=== PATIENT | male | born 2000 | race Caucasian/White ===

== ENCOUNTER 2018-04-03 12:21 | Emergency (ER) | payer OTHER ==
[~2018-04-03] VITALS: Ht 170.2 cm; Wt 60.0 kg
[~2018-04-03 12:21] MED LIST: IBUP-238 PO; OXYC-360 PO
[2018-04-03 12:35] VITALS: BP 103/69; PULSE 103; RESP 16; TEMP 99.3; O2SAT 99
[2018-04-03] MEDS ORDERED: SODIUM CHLOR 0.9% 1000 ML INJ 1,000 ML IV SCH (14:08)
[2018-04-03] MEDS ORDERED: SODIUM CHLORIDE 0.9% FLUSH 10 ML FLUSH IV FLUSH PRN (14:15)
[2018-04-03] MEDS ORDERED: SODIUM CHLOR 0.9% 1000 ML INJ 1,000 ML IV ONE (14:15)
[2018-04-03] MEDS ORDERED: KETOROLAC TROMETHAMINE 30 MG/ML (IVP) VIAL IV PUSH ONE (14:30)
--- NOTE | 2018-04-03 14:33 | PD ---
HPI Chief Complaint: GI Complaint Time Seen by Provider: 13:56 Travel History International Travel<30 days: No Contact w/Intl Traveler<30days: No Traveled to known affect area: No History of Present Illness HPI Patient is a 18-year-old male who presents to the emergency room with complaints of abdominal pain with diarrhea which has been ongoing for the past 4 -5 days. Patient reports that for the past 4-5 days, he has been having lower abdominal pain and cramping. Patient reports that he has been having multiple episodes of diarrhea, patient denies any sick contacts, denies any recent antibiotics, denies any recent travels or trips. Patient reports that he always has abdominal issues - has not seen a block layer in the past. Patient denies any dysuria, urinary urgency or frequency or hematuria. Patient with no fever chills, no other complaints. PFSH Past Medical History Asthma: Yes (CHILDHOOD ) Developmental Delay: No Diminished Hearing: No Kidney Stones: Yes Immunizations Current: Yes Past Surgical History Genitourinary Surgery: Yes (KIDNEY STENT RIGHT SIDE) Oral Surgery: Yes Other Surgery: Yes (KIDNEY STENTS PLACED) Social History Alcohol Use: No Tobacco Use: No Substance Use: No Allergies-Medications (Allergen,Severity, Reaction): Coded Allergies: No Known Allergies (Unverified Allergy, Unknown, 04/03/18) Reported Meds & Prescriptions Reported Meds & Active Scripts Active Percocet (Oxycodone/Acetaminophen) 5 Mg/325 Mg Tab 1 Tab PO Q4H PRN FOR PAIN Motrin (Ibuprofen) 800 Mg Tab 800 Mg PO Q6 Review of Systems General / Constitutional: No: Fever Eyes: No: Visual changes HENT: No: Headaches Cardiovascular: No: Chest Pain or Discomfort Respiratory: No: Shortness of Breath Gastrointestinal: Positive: Nausea, Diarrhea, Abdominal Pain, No: Constipation Genitourinary: No: Dysuria Musculoskeletal: No: Pain Skin: No Rash Neurologic: No: Weakness Psychiatric: No: Depression Endocrine: No: Polydipsia Hematologic/Lymphatic: No: Easy Bruising Physical Exam Narrative GENERAL: moderate distress SKIN: Focused skin assessment warm/dry. HEAD: Atraumatic. Normocephalic. EYES: Pupils equal and round. No scleral icterus. No injection or drainage. ENT: No nasal bleeding or discharge. Mucous membranes pink and moist. NECK: Trachea midline. No JVD. CARDIOVASCULAR: Regular rate and rhythm. No murmur appreciated. RESPIRATORY: No accessory muscle use. Clear to auscultation. Breath sounds equal bilaterally. GASTROINTESTINAL: Abdomen soft, tenderness to lower abdomen, nondistended. Hepatic and splenic margins not palpable. MUSCULOSKELETAL: No obvious deformities. No clubbing. No cyanosis. No edema. NEUROLOGICAL: Awake and alert. No obvious cranial nerve deficits. Motor grossly within normal limits. Normal speech. PSYCHIATRIC: Appropriate mood and affect; insight and judgment normal. Data Data Last Documented VS Vital Signs Date Time Temp Pulse Resp B/P (MAP) Pulse Ox O2 Delivery O2 Flow Rate FiO2 04/03/18 15:13 99 04/03/18 12:35 99.3 103 16 103/69 (80) Orders Orders Complete Blood Count With Diff (04/03/18 14:08) Comprehensive Metabolic Panel (04/03/18 14:08) Lipase (04/03/18 14:08) Prothrombin Time / Inr (Pt) (04/03/18 14:08) Act Partial Throm Time (Ptt) (04/03/18 14:08) Urinalysis - C+S If Indicated (04/03/18 14:08) Ct Abd/Pel W Iv Contrast(Rout) (04/03/18 14:08) Iv Access Insert/Monitor (04/03/18 14:08) Ecg Monitoring (04/03/18 14:08) Oximetry (04/03/18 14:08) Sodium Chlor 0.9% 1000 Ml Inj (Ns 1000 M (04/03/18 14:08) Sodium Chloride 0.9% Flush (Ns Flush) (04/03/18 14:15) Sodium Chlor 0.9% 1000 Ml Inj (Ns 1000 M (04/03/18 14:15) Ketorolac Inj (Toradol Inj) (04/03/18 14:30) Iohexol 350 Inj (Omnipaque 350 Inj) (04/03/18 16:16) Labs Laboratory Tests Test 04/03/18 14:30 White Blood Count 8.2 TH/MM3 Red Blood Count 5.73 MIL/MM3 Hemoglobin 18.0 GM/DL Hematocrit 52.3 % Mean Corpuscular Volume 91.2 FL Mean Corpuscular Hemoglobin 31.3 PG Mean Corpuscular Hemoglobin Concent 34.4 % Red Cell Distribution Width 13.5 % Platelet Count 193 TH/MM3 Mean Platelet Volume 8.5 FL Neutrophils (%) (Auto) 74.7 % Lymphocytes (%) (Auto) 13.2 % Monocytes (%) (Auto) 11.0 % Eosinophils (%) (Auto) 0.6 % Basophils (%) (Auto) 0.5 % Neutrophils # (Auto) 6.1 TH/MM3 Lymphocytes # (Auto) 1.1 TH/MM3 Monocytes # (Auto) 0.9 TH/MM3 Eosinophils # (Auto) 0.0 TH/MM3 Basophils # (Auto) 0.0 TH/MM3 CBC Comment DIFF FINAL Differential Comment Prothrombin Time 11.4 SEC Prothromb Time International Ratio 1.1 RATIO Activated Partial Thromboplast Time 25.9 SEC Urine Color YELLOW Urine Turbidity HAZY Urine pH 5.0 Urine Specific Lorenzo 1.028 Urine Protein NEG mg/dL Urine Glucose (UA) NEG mg/dL Urine Ketones NEG mg/dL Urine Occult Blood NEG Urine Nitrite NEG Urine Bilirubin NEG Urine Urobilinogen 2.0 mg/dL Urine Leukocyte Esterase NEG Urine RBC LESS THAN 1 /hpf Urine WBC 1 /hpf Urine Mucus MANY /lpf Microscopic Urinalysis Comment CULT NOT INDICATED Blood Urea Nitrogen 12 MG/DL Creatinine 1.15 MG/DL Random Glucose 82 MG/DL Total Protein 7.6 GM/DL Albumin 4.1 GM/DL Calcium Level 8.7 MG/DL Alkaline Phosphatase 77 U/L Aspartate Amino Transf (AST/SGOT) 18 U/L Alanine Aminotransferase (ALT/SGPT) 21 U/L Total Bilirubin 0.5 MG/DL Sodium Level 137 MEQ/L Potassium Level 3.9 MEQ/L Chloride Level 104 MEQ/L Carbon Dioxide Level 25.7 MEQ/L Anion Gap 7 MEQ/L Estimat Glomerular Filtration Rate 81 ML/MIN Lipase 78 U/L [facility] Medical Decision Making Medical Screen Exam Complete: Yes Emergency Medical Condition: Yes Medical Record Reviewed: Yes Interpretation(s) Vital Signs Date Time Temp Pulse Resp B/P (MAP) Pulse Ox O2 Delivery O2 Flow Rate FiO2 04/03/18 12:35 99.3 103 16 103/69 (80) 99 Differential Diagnosis Colitis, diverticulitis, Crohn's disease, UTI, gastritis, gastroenteritis Narrative Course During the course of the patients emergency department visit, the patients history, examination, and differential diagnosis were reviewed with the patient. The patient was placed on a color television console monitor with oximetry and frequent blood pressure monitoring. The patient had an IV access obtained and blood work sent for analysis. The patient was initially provided IVF as well as IV toradol The patients laboratory studies were reviewed and remarkable for Laboratory Tests Test 04/03/18 14:30 White Blood Count 8.2 TH/MM3 (4.0-11.0) Red Blood Count 5.73 MIL/MM3 (4.50-5.90) Hemoglobin 18.0 GM/DL (13.0-17.0) Hematocrit 52.3 % (39.0-51.0) Mean Corpuscular Volume 91.2 FL (80.0-100.0) Mean Corpuscular Hemoglobin 31.3 PG (27.0-34.0) Mean Corpuscular Hemoglobin Concent 34.4 % (32.0-36.0) Red Cell Distribution Width 13.5 % (11.6-17.2) Platelet Count 193 TH/MM3 (150-450) Mean Platelet Volume 8.5 FL (7.0-11.0) Neutrophils (%) (Auto) 74.7 % (16.0-70.0) Lymphocytes (%) (Auto) 13.2 % (9.0-44.0) Monocytes (%) (Auto) 11.0 % (0.0-8.0) Eosinophils (%) (Auto) 0.6 % (0.0-4.0) Basophils (%) (Auto) 0.5 % (0.0-2.0) Neutrophils # (Auto) 6.1 TH/MM3 (1.8-7.7) Lymphocytes # (Auto) 1.1 TH/MM3 (1.0-4.8) Monocytes # (Auto) 0.9 TH/MM3 (0-0.9) Eosinophils # (Auto) 0.0 TH/MM3 (0-0.4) Basophils # (Auto) 0.0 TH/MM3 (0-0.2) CBC Comment DIFF FINAL Differential Comment Prothrombin Time 11.4 SEC (9.8-11.6) Prothromb Time International Ratio 1.1 RATIO Activated Partial Thromboplast Time 25.9 SEC (24.3-30.1) Urine Color YELLOW (YELLW/STRAW) Urine Turbidity HAZY (CLEAR) Urine pH 5.0 (5.0-8.5) Urine Specific [place] 1.028 (1.002-1.035) Urine Protein NEG mg/dL (NEG-TRACE) Urine Glucose (UA) NEG mg/dL (NEG) Urine Ketones NEG mg/dL (NEG) Urine Occult Blood NEG (NEG) Urine Nitrite NEG (NEG) Urine Bilirubin NEG (NEG) Urine Urobilinogen 2.0 mg/dL (LESS THAN 2) Urine Leukocyte Esterase NEG (NEG) Urine RBC LESS THAN 1 /hpf (0-3) Urine WBC 1 /hpf (0-5) Urine Mucus MANY /lpf (OCC) Microscopic Urinalysis Comment CULT NOT INDICATED Blood Urea Nitrogen 12 MG/DL (7-18) Creatinine 1.15 MG/DL (0.60-1.30) Random Glucose 82 MG/DL (74-106) Total Protein 7.6 GM/DL (6.4-8.2) Albumin 4.1 GM/DL (3.4-5.0) Calcium Level 8.7 MG/DL (8.5-10.1) Alkaline Phosphatase 77 U/L (45-117) Aspartate Amino Transf (AST/SGOT) 18 U/L (15-39) Alanine Aminotransferase (ALT/SGPT) 21 U/L (9-52) Total Bilirubin 0.5 MG/DL (0.2-1.0) Sodium Level 137 MEQ/L (136-145) Potassium Level 3.9 MEQ/L (3.5-5.1) Chloride Level 104 MEQ/L (98-107) Carbon Dioxide Level 25.7 MEQ/L (21.0-32.0) Anion Gap 7 MEQ/L (5-15) Estimat Glomerular Filtration Rate 81 ML/MIN (>89) Lipase 78 U/L (73-393) Radiology studies were reviewed and remarkable for Last Impressions Abdomen/Pelvis CT 04/03/18 1408 Signed Impressions: CONCLUSION: 1. I do not see an etiology for the patient's diffuse abdominal pain. There ar e no inflammatory changes evident. Lab work including CT of the abdomen pelvis were reviewed. Patient with benign workup. Patient is feeling better at this time, patient with most likely gastroenteritis. Signs and symptoms of acute abdomen reviewed with patient and his mother, discussed need for follow-up with a block layer as he may have early symptoms of Crohn's disease versus ulcerative colitis versus IBS. Patient will be given a copy of the studies at discharge, he will return to the emergency room as needed. All incidental findings were reviewed with patient. Diagnosis Primary Impression: Abdominal pain Qualified Codes: R10.9 - Unspecified abdominal pain Additional Impression: Gastroenteritis Patient Instructions: General Instructions Additional Instructions: Please provide patient with a copy of their lab work and studies at discharge* * Please follow up with your primary care doctor in 2-3 days Return to the ER if symptoms worsen or progress Return to the ER as needed Please follow-up with a block layer Disposition: 01 DISCHARGE HOME Condition: Stable Maryana Hendrix DO Apr 03, 2018 14:33
[2018-04-03 14:44] LABS: AUTOMATED NEUTROPHIL # 6.1 TH/MM3 (1.8-7.7); BASOPHIL % 0.5 % (0.0-2.0); EOSINOPHIL % 0.6 % (0.0-4.0); HEMATOCRIT 52.3 % (39.0-51.0); LYMPH % 13.2 % (9.0-44.0); LYMPHOCYTE # 1.1 TH/MM3 (1.0-4.8); MEAN CELL VOLUME 91.2 FL (80.0-100.0); MEAN CORPUSCULAR HEMOGLOBIN 31.3 PG (27.0-34.0); MEAN CORPUSCULAR HGB CONC 34.4 % (32.0-36.0); MEAN PLATELET VOLUME 8.5 FL (7.0-11.0); MONOCYTE # 0.9 TH/MM3 (0-0.9); NEUT % 74.7 % (16.0-70.0); PLATELET COUNT 193 TH/MM3 (150-450); RED BLOOD COUNT 5.73 MIL/MM3 (4.50-5.90); RED CELL DISTRIBUTION WIDTH 13.5 % (11.6-17.2); WHITE BLOOD COUNT 8.2 TH/MM3 (4.0-11.0)
[2018-04-03 14:57] LABS: BILIRUBIN, URINE NEG (NEG); BLOOD, URINE NEG (NEG); GLUCOSE,URINE NEG (NEG); KETONE, URINE NEG (NEG); MUCUS URINE MANY /lpf (OCC); NITRITE,URINE NEG (NEG); URINE COLOR YELLOW (YELLW/STRAW); URINE LEUKOCYTE ESTERASE NEG (NEG)
[2018-04-03 15:05] LABS: ALBUMIN 4.1 GM/DL (3.4-5.0); AST (GOT) 18 U/L (15-39); BICARBONATE 25.7 MEQ/L (21.0-32.0); BLOOD UREA NITROGEN 12 MG/DL (7-18); CALCIUM 8.7 MG/DL (8.5-10.1); CHLORIDE 104 MEQ/L (98-107); CREATININE 1.15 MG/DL (0.60-1.30); GLOMERULAR FILTRATION RATE 81 ML/MIN (>89); GLUCOSE,RANDOM 82 MG/DL (74-106); SODIUM (NA) 137 MEQ/L (136-145)
[2018-04-03 15:06] LABS: ALT (GPT) 21 U/L (9-52)
[2018-04-03 15:09] LABS: ALKALINE PHOSPHATASE 77 U/L (45-117); TOTAL BILIRUBIN ADULT 0.5 MG/DL (0.2-1.0); TOTAL PROTEIN 7.6 GM/DL (6.4-8.2)
[2018-04-03 15:13] VITALS: O2SAT 99
[2018-04-03 15:29] LABS: INTERNATIONAL NORMALIZED RATIO 1.1 RATIO; PROTHROMBIN TIME - PATIENT 11.4 SEC (9.8-11.6)
[2018-04-03] MEDS ORDERED: IOHEXOL 350 MG/ML 10 ML VIAL (for RAD DIAG) IVCONTRAST ONE (16:16)
--- NOTE | 2018-04-03 16:30 | RADRPT ---
EXAM DATE: 04/03/2018 4:15 PM EDT AGE/SEX: 18 years / Male INDICATIONS: Diffuse abdominal pain. Nausea, vomiting and diarrhea. CLINICAL DATA: This is the patient's initial encounter. Patient reports that signs and symptoms have been present for 4 - 6 days and indicates a pain score of 8/10. MEDICAL/SURGICAL HISTORY: Renal calculi. Lithotripsy. ORAL CONTRAST: No oral contrast ingested. RADIATION DOSE: 6.64 CTDI (mGy) COMPARISON: No prior exams available for comparison. TECHNIQUE: Multiple contiguous axial images were obtained through the abdomen and pelvis following b olus infusion of 95 ml Omnipaque 350 (iohexol) nonionic water-soluble contrast as a single exam dos e. No oral contrast ingested. Using automated exposure control and adjustment of the mA and/or kV ac cording to patient size, the radiation dose was kept as low as reasonably achievable to obtain optima l diagnostic quality images. FINDINGS: The lower lungs are clear. The liver and gallbladder unremarkable Spleen and pancreas appear normal The adrenal glands unremarkable Symmetrical renal function with a nonobstructing 4 mm stone on the left There are no inflammatory changes in the abdomen There is no adenopathy or free fluid In the pelvis there are no inflammatory changes evident. There is no adnexal mass. Bone windows are unremarkable. CONCLUSION: 1. I do not see an etiology for the patient's diffuse abdominal pain. There are no inflammatory krishnamurthy ges evident. Electronically signed by: Refugio Pritchett MD 04/03/2018 4:28 PM EDT
== END 2018-04-03 16:53 | disposition home or self-care (01) ==
LOC: NEPD 12:21
DX: K52.9 Noninfective gastroenteritis and colitis, unspecified (principal)
CPT/HCPCS: 74177; 80053; 81001; 83690; 85025; 85610; 85730; 96374; 99284; J1885; J7030; Q9967

== ENCOUNTER 2018-06-24 16:14 | Inpatient (IN) ==
[2018-06-24 17:23] LABS: Baso # (Auto) 0.1 th/mm3 (0.0-0.2); Baso % (Auto) 0.7 % (0.0-2.0); Eos % (Auto) 0.3 % (0.0-4.0); Hematocrit 47.7 % (39.0-51.0); Hemoglobin 16.7 gm/dL (13.0-17.0); Lymph # (Auto) 2.5 th/mm3 (1.0-4.8); Lymph % (Auto) 33.7 % (9.0-44.0); Mean Corpuscular HGB Conc 35.1 % (32.0-36.0); Mean Corpuscular Hemoglobin 31.7 pg (27.0-34.0); Mean Corpuscular Volume 90.2 fL (80.0-100.0); Mean Platelet Volume 9.7 fL (7.0-11.0); Mono # (Auto) 0.5 th/mm3 (0.0-0.9); Mono % (Auto) 6.2 % (0.0-8.0); Neut # (Auto) 4.4 th/mm3 (1.8-7.7); Neut % (Auto) 59.1 % (16.0-70.0); Platelet Count 227 th/mm3 (150-450); Red Blood Count 5.29 mil/mm3 (4.50-5.90); Red Cell Distribution Width 12.9 % (11.6-17.2); White Blood Count 7.5 th/mm3 (4.0-11.0)
[2018-06-24 17:55] LABS: Albumin 4.8 g/dL (3.4-5.0); Anion Gap 9 meq/L (5-15); Aspartate Aminotransferase 15 U/L (15-39); Blood Urea Nitrogen 9 mg/dL (7-18); Calcium 9.4 mg/dL (8.5-10.1); Carbon Dioxide 26.7 meq/L (21.0-32.0); Chloride 105 meq/L (98-107); Glomerular Filtration Rate Greater Than 89 mL/min (>89); Glucose,Random 83 mg/dL (74-106); Potassium 3.7 meq/L (3.5-5.1); Sodium 141 meq/L (136-145)
[2018-06-24 18:05] LABS: Alanine Aminotransferase 17 U/L (9-52); Alkaline Phosphatase 87 U/L (45-117); Total Protein 8.5 g/dL (6.4-8.2)
--- NOTE | 2018-06-24 18:25 | ED ---
HPI General Chief complaint: Psychiatric Symptoms Stated complaint: Psych Eval-HHPD Time Seen by Provider: 06/24/18 17:52 History of Present Illness HPI narrative: 18-year-old male with a history of depression is brought to the emergency department under Patel act for evaluation of suicidal ideations. Per the Patel act report the patient called the suicide hotline and PD went to pick him up. The patient states that he has been feeling more depressed recently and last night started feeling suicidal. States that he tried to get in contact with his family and friends and could not get a hold of anybody and this morning his suicidal ideations worsened so he called the was at hotline. He is currently complaining of feeling very anxious. He still is having suicidal ideations. States that his plan would be to get on the highway and drive off the road into a pole to kill himself. The patient states that he has tried to attempt suicide twice in the past. He currently is taking Zoloft for his depression. Denies any drug or alcohol use. Denies any homicidal ideations. Denies any physical complaints. No other complaints. Related Data Home Medications Medication Instructions Recorded Confirmed sertraline [Zoloft] 100 mg PO DAILY 06/24/18 06/24/18 Allergies Allergy/AdvReac Type Severity Reaction Status Date / Time No Known Allergies Allergy Unverified 06/24/18 16:20 Review of Systems ROS: all other systems reviewed are negative PMFSH Medical History Medical History Kidney stones (Acute) Surgical History Surgical History S/P ureteral stent placement (Acute) Social History Social History Substance History: No History of Abuse Second Hand Smoke Exposure: No Smoking Status: Never smoker How Often Do You Have a Drink Containing Alcohol: Never Recent Travel in [facility] within the Last 8 Weeks: No Recent Out of Country Travel within the Last 8 Weeks: No Immunization History Tetanus Immunization: >5 Years Hx Influenza Vaccine This Season: No Exam Narrative Exam Narrative: GENERAL: Well-nourished and well-developed pleasant male patient in no acute distress however is anxious appearing. SKIN: Warm and dry no obvious rashes or lesions. HEAD: Normocephalic and atraumatic. EYES: No injection, drainage, or hyphema noted. PERRLA. EOMI. ENT: No nasal drainage noted. Oropharynx is clear. NECK: Supple and the trachea is midline. CARDIOVASCULAR: Regular rate and rhythm. RESPIRATORY: Breath sounds are equal bilaterally with no accessory muscle use, wheezing, rhonchi, or crackles. GASTROINTESTINAL: Abdomen is soft, non-tender, and nondistended. MUSCULOSKELETAL: No obvious deformities, swelling, cyanosis, or ecchymosis is present throughout the upper and lower extremities. Patient has full range of motion without any signs of neurovascular compromise. Distal pulses are 2+ throughout. NEUROLOGICAL: Awake, alert, and oriented. Normal speech and gait. Cranial nerves are grossly intact. Course Initial Documented Vital Signs Temperature 98.9 F 06/24/18 16:56 Pulse Rate 64 06/24/18 16:56 Respiratory Rate 18 06/24/18 16:56 Blood Pressure 111/62 06/24/18 16:56 Pulse Oximetry 98 06/24/18 16:56 Last Documented Vital Signs Temperature 98.9 F 06/24/18 16:56 Pulse Rate 64 06/24/18 16:56 Respiratory Rate 18 06/24/18 16:56 Blood Pressure 111/62 06/24/18 16:56 Pulse Oximetry 98 06/24/18 16:56 Medical Decision Making [facility] Narrative Medical decision making narrative: Patient presents under a Patel act. Physical examination and vital signs are essentially unremarkable. Patient has no medical complaints to report. Patient is complaining of anxiety and therefore is administered Vistaril 50 mg orally. Psych screen has been ordered. The laboratory results are unremarkable. The patient is medically cleared for psychiatric evaluation and disposition. Medical Screen Exam Complete: Yes Emergency Medical Condition: Yes Differential Diagnosis Differential Diagnosis: Differential: Depression versus adjustment reaction versus anxiety versus PTSD versus psychosis NOS versus mood disorder NOS versus substance induced mood disorder versus ODD versus adjustment reaction versus schizophrenia versus bipolar disorder versus schizoaffective versus electrolyte abnormality versus dementia versus malingering. Lab Data Result diagrams: 06/24/18 16:26 06/24/18 16:26 Lab Results 06/24/18 06/24/18 Range/Units 16:26 16:26 WBC 7.5 (4.0-11.0) th/mm3 RBC 5.29 (4.50-5.90) mil/mm3 Hgb 16.7 (13.0-17.0) gm/dL Hct 47.7 (39.0-51.0) % MCV 90.2 (80.0-100.0) fL MCH 31.7 (27.0-34.0) pg MCHC 35.1 (32.0-36.0) % RDW 12.9 (11.6-17.2) % Plt Count 227 (150-450) th/mm3 MPV 9.7 (7.0-11.0) fL Neut % (Auto) 59.1 (16.0-70.0) % Lymph % (Auto) 33.7 (9.0-44.0) % [place] % (Auto) 6.2 (0.0-8.0) % Eos % (Auto) 0.3 (0.0-4.0) % Baso % (Auto) 0.7 (0.0-2.0) % Neut # (Auto) 4.4 (1.8-7.7) th/mm3 Lymph # (Auto) 2.5 (1.0-4.8) th/mm3 [place] # (Auto) 0.5 (0.0-0.9) th/mm3 Eos # (Auto) 0.0 (0.0-0.4) th/mm3 Baso # (Auto) 0.1 (0.0-0.2) th/mm3 WBC Differential . Differential Comment Auto diff final Sodium 141 (136-145) meq/L Potassium 3.7 (3.5-5.1) meq/L Chloride 105 (98-107) meq/L Carbon Dioxide 26.7 (21.0-32.0) meq/L Anion Gap 9 (5-15) meq/L BUN 9 (7-18) mg/dL Creatinine 1.03 (0.60-1.30) mg/dL Estimated GFR Greater than 89 (>89) mL/min Random Glucose 83 (74-106) mg/dL Calcium 9.4 (8.5-10.1) mg/dL Total Bilirubin 0.5 (0.2-1.0) mg/dL AST 15 (15-39) U/L ALT 17 (9-52) U/L Alkaline Phosphatase 87 (45-117) U/L Total Protein 8.5 H (6.4-8.2) g/dL Albumin 4.8 (3.4-5.0) g/dL TSH 1.960 (0.358-3.740) uIU/mL Serum Alcohol Less than 3 (0-5) mg/dL Discharge Plan Discharge Disposition Patient Disposition: 30 Still Patient Discharge Details Diagnosis: Depression Physicians Team ED Provider: Jose Roberto Tim ED Midlevel Provider: Yaquelin Grant Primary Care Provider: UNKNOWN, Rxs /Orders / Referrals /Forms Prescriptions: No Action sertraline [Zoloft] 100 mg Tablet 100 mg PO DAILY RF: 0 Discharge Interventions Interventions: Vital Signs Last Done: 06/24/18 16:56 Status ED Status: With Doctor
[2018-06-24 19:49] LABS: Amphetamine Screen,Urine Neg (Neg); Barbiturate Screen,Urine Neg (Neg); Cannabinoid Screen,Urine Neg (Neg); Cocaine Screen,Urine Neg (Neg)
[2018-06-24 20:19] LABS: Opiate Screen,Urine Neg (Neg)
[2018-06-24] MEDS ORDERED: Aluminum/Magnesium/Simethacone Susp 30 ML UDC PO PRN (21:00)
[2018-06-25 09:09] LABS: Chol/HDL Ratio 3.04 Ratio; HDL Cholesterol 42.1 mg/dL (40.0-60.0)
--- NOTE | 2018-06-25 11:02 | P.HPPSY ---
Provisional Diagnosis Admission Date: June 24, 2018 21:01 Competence Certification of Person's Competence To Provide Express and Informed Consent I have personally examined Zachariah Castellanos III, a person being served at [facility] on, June 25, 2018 1056. Express and informed consent means consent voluntarily given in writing, by a competent person, after sufficient explanation and disclosure of the subject matter involved to enable the person to make a knowing and willful decision without any element of force, fraud, deceit, duress, or other form of constraint or coercion. This person is 18 years of age or older, is not now known to be incompetent to consent to treatment with a guardian advocate, and does not have a health care surrogate or proxy currently making medical treatment decisions. I have found this person to be one of the following: [X] Competent to provide express and informed consent, as defined above, for voluntary admission to this facility and is competent to provide express and informed consent for treatment. He/she has the consistent capacity to make well reasoned, willful, and knowing decisions concerning his or her medical or mental health treatment. The person fully and consistently understands the purpose of the admission for examination/placement and is fully capable of personally exercising all rights assured under [place] [] Incompetent to provide express and informed consent to voluntary admission, and this is incompetent to provide express and informed consent to treatment. The person must be transferred to involuntary status and a petition for a guardian advocate filed with the Circuit Court. [] Refusing to provide express and informed consent to voluntary admission but is competent to provide express and informed consent for treatment. The person must be discharged or transferred to involuntary status. Form shall be completed within 24 hours of a person's arrival at the receiving facility and filed in the clinical record of each person: 1. Admitted on a voluntary basis 2. Permitted to provide express and informed consent to his/her own treatment 3. Allowed to transfer from involuntary to voluntary status 4. Prior to permitting a person to consent to his or her own treatment after having been previously found incompetent to consent to treatment. History of Present Illness Capacity: Has capacity Chief Complaint: see below History of Present Illness: Patient is a 18-year-old male admitted for suicidal ideation with a history of multiple depressive episodes. Patient describes depressive symptoms over the last 6 months. He has had sad mood, low energy, poor sleep at 4 hours a night and poor appetite with a resulting weight loss of 20 pounds. He had been compliant with his Zoloft 100 mg daily from his medical doctor but it has had no effects in the last 6 months. Patient developed suicidal ideation last night , felt scared and called the suicide hotline. Today, patient admits to fleeting suicidal thoughts but does not have persistent ideation intent or plan. Patient says that on occasion he hears screaming in her car horns that are not there. There are no voices that are talking to him. There are no delusions that were elicited. Denies a history of tejas. Patient also complains of panic attacks with tachycardia and shortness of breath twice a week Past psychiatric history include no outpatient history and one inpatient admissions 2 years ago. Patient has had multiple suicide attempts where he tried to jump off a third story balcony while he was in the he is also try to overdose on pills. Medical history includes kidney stones and he follows up with a urologist regularly Patient is a healthy relationship with his girlfriend. He is working as a travel pt and lives and is close to his father - Inpatient Certification I certify that the inpatient services were ordered in accordance with Medicare regulations governing the order. This includes certification that hospital inpatient services are reasonable and necessary and in the case of services not specified as inpatient-only under 42 CFR 419.22(n), that they are appropriately provided as inpatient services in accordance to with the 2-midnight benchmark under 43 CFR 412.3(e) I certify that inpatient psychiatric hospital services are medically necessary. Evaluation and treatment and/or diagnostic testing are expected to improve the patient's condition. The patient needs on a daily basis, active treatment furnished directly by or requiring the supervision of inpatient psychiatric facility personnel. Estimated Total Length of Stay (Days): 7 Plans for Post Hospital Care: Not yet determined PMFSH - History History Provided By: Patient - Medical History Medical History: Medical History (Last Updated 06/24/18 @ 16:22 by Rosa Peterson) Kidney stones - Surgical History Surgical History: Surgical History (Last Updated 06/24/18 @ 16:22 by Rosa Peterson) S/P ureteral stent placement - Tobacco History Second Hand Smoke Exposure: No Tobacco Use In Past 30 Days: No Smoking Status: Never smoker - Alcohol History How Often Do You Have a Drink Containing Alcohol: Never - Substance Use History Substance History: No History of Abuse - Travel History Recent Travel in the [place] Within the Last 8 Weeks: No Recent Travel Out of the Country Within the Last 8 Weeks: No - Immunization History Tetanus Immunization: >5 Years Hx Influenza Vaccine This Season: No Medications and Allergies Active Medications: Active Medications Acetaminophen (Tylenol) 650 mg PO Q4H PRN PRN Reason: Pain 1-5 or Temp >101F Al Hydrox/Mg Hydrox/Simethicone (Mag-Al Plus Susp Liq) 30 ml PO Q6H PRN PRN Reason: DYSPEPSIA Al Hydroxide/Mg Hydroxide (Milk Of Magnesia Liq) 30 ml PO Q12H PRN PRN Reason: Mild Constipation Melatonin (Melatonin) 5 mg PO HS PRN PRN Reason: INSOMNIA Nicotine (Habitrol 21 Mg Patch.24 Hr) 1 patch T-DERMAL DAILY PRN PRN Reason: Nicotine craving Patch Removal (Remove Old Patch) 1 each T-DERMAL DAILY JOHN Allergies Allergy/AdvReac Type Severity Reaction Status Date / Time No Known Allergies Allergy Unverified 06/24/18 16:20 Home Medications Medication Instructions Recorded Confirmed Type sertraline [Zoloft] 100 mg PO DAILY 06/24/18 06/24/18 History Results - Labs CBC & Chem 7: 06/24/18 16:26 06/24/18 16:26 Labs: Laboratory Results - last 24 hr 06/24/18 06/24/18 06/24/18 16:26 16:26 19:15 WBC 7.5 RBC 5.29 Hgb 16.7 Hct 47.7 MCV 90.2 MCH 31.7 MCHC 35.1 RDW 12.9 Plt Count 227 MPV 9.7 Neut % (Auto) 59.1 Lymph % (Auto) 33.7 Lamar % (Auto) 6.2 Eos % (Auto) 0.3 Baso % (Auto) 0.7 Neut # (Auto) 4.4 Lymph # (Auto) 2.5 Lamar # (Auto) 0.5 Eos # (Auto) 0.0 Baso # (Auto) 0.1 WBC Differential . Differential Comment Auto diff final Sodium 141 Potassium 3.7 Chloride 105 Carbon Dioxide 26.7 Anion Gap 9 BUN 9 Creatinine 1.03 Estimated GFR Greater than 89 Random Glucose 83 Calcium 9.4 Total Bilirubin 0.5 AST 15 ALT 17 Alkaline Phosphatase 87 Total Protein 8.5 H Albumin 4.8 Triglycerides Cholesterol LDL Cholesterol, Calc HDL Cholesterol Cholesterol/HDL Ratio TSH 1.960 Urine Opiates Screen Neg Ur Barbiturates Screen Neg Ur Amphetamines Screen Neg U Benzodiazepines Scrn Neg Urine Cocaine Screen Neg U Cannabinoids Screen Neg Serum Alcohol Less than 3 06/25/18 08:04 WBC RBC Hgb Hct MCV MCH MCHC RDW Plt Count MPV Neut % (Auto) Lymph % (Auto) Lamar % (Auto) Eos % (Auto) Baso % (Auto) Neut # (Auto) Lymph # (Auto) Lamar # (Auto) Eos # (Auto) Baso # (Auto) WBC Differential Differential Comment Sodium Potassium Chloride Carbon Dioxide Anion Gap BUN Creatinine Estimated GFR Random Glucose Calcium Total Bilirubin AST ALT Alkaline Phosphatase Total Protein Albumin Triglycerides 118 Cholesterol 128 LDL Cholesterol, Calc 62 HDL Cholesterol 42.1 Cholesterol/HDL Ratio 3.04 TSH Urine Opiates Screen Ur Barbiturates Screen Ur Amphetamines Screen U Benzodiazepines Scrn Urine Cocaine Screen U Cannabinoids Screen Serum Alcohol Exam Vital signs: Vital Signs 06/24/18 16:56 06/24/18 21:00 06/25/18 05:01 Temperature 98.9 F 97.9 F 97.8 F Pulse Rate 64 96 H 60 Respiratory Rate 18 17 16 Blood Pressure 111/62 134/82 114/65 Pulse Oximetry 98 97 97 Intake & Output 06/24/18 06/25/18 06/25/18 18:59 06:59 18:59 Intake Total 360 / 360 Balance 360 / 360 Weight 124 kg 52.2 kg Intake: Oral 360 / 360 Other: Weight On Admission 52.2 kg Mental Status Examination Appearance: Appropriate Consciousness: Alert Orientation: x4 Motor Activity: Normal gait Speech: Unremarkable Language: Adequate Fund of Knowledge: Adequate Attention and Concentration: Adequate Memory: Unremarkable Mood: Sad Affect: Blunt Thought Process & Associations: Intact Thought Content: Appropriate Hallucination Type: Auditory (Screaming) Suicidal Ideation: Yes (Fleeting) Suicidal Plan: No Suicidal Intention: No Homicidal Ideation: No Homicidal Plan: No Homicidal Intention: No Insight: Fair Judgment: Adequate Assessment and Plan - Plan Plan: Estimated LOS: [] days Patient may sign voluntary. We discussed changing his medication to Effexor and Remeron at night to help with sleep and appetite. Safety plan reviewed and patient contracts for safety. Justification for Continued Inpatient Stay: Patient would decompensate in a less restrictive setting
[2018-06-25 13:32] LABS: Hemoglobin A1c 5.1 % (4.3-6.0)
[2018-06-25] MEDS: Venlafaxine XR 75 MG Capsule PO SCH (14:59)
[2018-06-25] MEDS: Mirtazapine 15 MG Tablet PO SCH (20:51)
[2018-06-26] MEDS: Venlafaxine XR 75 MG Capsule PO SCH (08:49)
[2018-06-26] MEDS: LORazepam 1 MG Tablet PO PRN ×2 (15:32→20:58)
--- NOTE | 2018-06-26 18:45 | P.PNPSY ---
Subjective Chief Complaint: see below Remarks: Patient seen for follow up; chart reviewed. Discussion with nursing staff reported that patient isolative. Patient found lying on hospital bed, noted be calm and cooperative. Patient stated he is feeling "really anxious" had some difficulty sleeping less evening states that medications appear to be helpful, reports mood being "better" feeling less depressed but continues with suicidal ideations. Patient denies any perceptional services at this time. Patient reports 3 main stressors have included relationship discord with his girlfriend , recent discharge from the due to his mental health, and feeling that he is "sick all the time" referring to his recurrent kidney stones. Review of Systems All other systems reviewed negative except as stated in HPI Mental Status Examination Appearance: Appropriate Consciousness: Alert Orientation: x4 Motor Activity: Normal gait Speech: Unremarkable Language: Adequate Fund of Knowledge: Adequate Attention and Concentration: Adequate Memory: Unremarkable Mood: Sad Affect: Blunt Thought Process & Associations: Intact Thought Content: Appropriate Hallucination Type: Auditory (Screaming) Suicidal Ideation: Yes Suicidal Plan: No Suicidal Intention: No Homicidal Ideation: No Homicidal Plan: No Homicidal Intention: No Insight: Fair Judgment: Adequate Assessment and Plan - Assessment (1) Depression Code(s): F32.9 - Major depressive disorder, single episode, unspecified Status : Acute - Plan Plan: Patient this time continues with ongoing suicidal ideations, reporting continued feelings of anxiety but states that his depression is improving. We will continue current treatment. We will continue monitor mood and behavior. We will add Lorazepam 1 mg every 6 hours as needed for anxiety. Discharge planning a progress. Justification for Continued Inpatient Stay: At risk of further decompensation a lower level of care. (1) Depression Qualifiers: Depression Type: unspecified Qualified Code(s): F32.9 - Major depressive disorder, single episode, unspecified
[2018-06-26] MEDS: Mirtazapine 15 MG Tablet PO SCH (20:58)
[2018-06-26] MEDS: Melatonin 5 MG Tablet PO PRN (21:00)
[2018-06-27] MEDS: LORazepam 1 MG Tablet PO PRN ×3 (09:03→20:13)
[2018-06-27] MEDS: Venlafaxine XR 75 MG Capsule PO SCH (09:03)
[2018-06-27] MEDS: Mirtazapine 15 MG Tablet PO SCH (20:13)
[2018-06-27] MEDS: Melatonin 5 MG Tablet PO PRN (20:14)
--- NOTE | 2018-06-27 23:47 | P.PNPSY ---
Subjective Chief Complaint: see below Remarks: Patient seen for follow up; chart reviewed. Discussion with nursing staff reported patient had been endorsing this morning feeling very anxious and stated that he was considering using bed sheets around the bathroom doorknob to hang himself. Patient was found sitting in the hallway noted to be anxious, with poor eye contact. Patient states that he is upset that he could not connect to his girlfriend or mother over the phone and wondering how his girlfriend is doing. Patient reports sleeping well last evening but states that it took a while. Patient reports his mood is "anxious" stating that he is worried about everything including his job, his girlfriend's family. Patient reports having had suicide ideation this morning with plan to hang himself with sheets. Review of Systems All other systems reviewed negative except as stated in HPI Mental Status Examination Appearance: Appropriate Consciousness: Alert Orientation: x4 Motor Activity: Normal gait Speech: Unremarkable Language: Adequate Fund of Knowledge: Adequate Attention and Concentration: Adequate Memory: Unremarkable Mood: Sad, Anxious Affect: Anxious Thought Process & Associations: Intact Thought Content: Appropriate Hallucination Type: Auditory (Screaming) Suicidal Ideation: Yes Suicidal Plan: Yes Suicidal Intention: No Homicidal Ideation: No Homicidal Plan: No Homicidal Intention: No Insight: Fair Judgment: Adequate Assessment and Plan - Assessment (1) Depression Code(s): F32.9 - Major depressive disorder, single episode, unspecified Status : Acute - Plan Plan: Patient endorsing overwhelming anxiety which appears to exasperate his depressed mood which patient continues with suicidal ideations which patient had endorse plan of hanging himself. We will place patient on one-to-one observation for safety. We will increase Effexor to 150 mg p.o. daily, continue rest of medications. We will continue to monitor mood and behavior. Discharge planning in progress. Justification for Continued Inpatient Stay: At risk of further decompensation a lower level of care. (1) Depression Qualifiers: Depression Type: unspecified Qualified Code(s): F32.9 - Major depressive disorder, single episode, unspecified
[2018-06-28] MEDS: LORazepam 1 MG Tablet PO PRN ×2 (08:29→17:27)
[2018-06-28] MEDS: Venlafaxine XR 75 MG Capsule PO SCH (08:29)
--- NOTE | 2018-06-28 18:22 | P.PNPSY ---
Subjective Chief Complaint: see below Remarks: Patient seen for follow up; chart reviewed. Discussion with nursing staff reported that patient patient continues to have episodes of anxiety requiring as needed Lorazepam. Patient was found lying hospital bed in position elevated respiratory rate. He is feeling extremely anxious and having a panic attack. The patient was provided with 5 mg olanzapine to assist with his current symptomatology. He states having had poor sleep less evening, that his mood is "okay" but continues to feel depressed but lessening. Patient continued with suicidal ideations last time being earlier today which lasts a few hours. Patient stated reasonably well for his girlfriend, nephew and parents. He also mentions having visited by his mother less evening which went well. Patient continues to endorse extreme anxiety and was encouraged to utilize coping skills to manage his anxiety as well as starting of buspirone. Review of Systems All other systems reviewed negative except as stated in HPI Mental Status Examination Appearance: Appropriate Consciousness: Alert Orientation: x4 Motor Activity: Normal gait Speech: Unremarkable Language: Adequate Fund of Knowledge: Adequate Attention and Concentration: Adequate Memory: Unremarkable Mood: Anxious Affect: Anxious Thought Process & Associations: Intact Thought Content: Appropriate Hallucination Type: Auditory (Screaming) Suicidal Ideation: Yes Suicidal Plan: No Suicidal Intention: No Homicidal Ideation: No Homicidal Plan: No Homicidal Intention: No Insight: Fair Judgment: Adequate Assessment and Plan - Assessment (1) Depression Code(s): F32.9 - Major depressive disorder, single episode, unspecified Status : Acute - Plan Plan: Patient this time and cursing anxiety and panic attacks on the unit but redirectable. We will start buspirone 5 mg p.o. 3 times daily for anxiety as well as trazodone 50 mg p.o. at bedtime for insomnia. Continue his medications but continue to monitor mood and behavior. Patient to continue one-to-one observation for safety. This was planning a progress. Justification for Continued Inpatient Stay: At risk of further decompensation a lower level care (1) Depression Qualifiers: Depression Type: unspecified Qualified Code(s): F32.9 - Major depressive disorder, single episode, unspecified
--- NOTE | 2018-06-28 20:08 | ECG ---
Date Performed: 06/28/2018 Time Performed: 09:26:10 PTAGE: 18 years EKG: SINUS TACHYCARDIA WITH SHORT NC INTERVAL POSSIBLE RIGHT VENTRICULAR CONDUCTION DELAY ABNORM AL RHYTHM ECG NO PREVIOUS TRACING DOCTOR: Jass Valdes Interpretating Date/Time 06/28/2018 20:07:45
[2018-06-28] MEDS: Melatonin 5 MG Tablet PO PRN (20:46)
[2018-06-28] MEDS: Mirtazapine 15 MG Tablet PO SCH (20:46)
[2018-06-28] MEDS ORDERED: traZODone 50 MG Tablet PO SCH (21:00)
[2018-06-29] MEDS: Venlafaxine XR 75 MG Capsule PO SCH (08:07)
[2018-06-29] MEDS: LORazepam 1 MG Tablet PO PRN (08:07)
--- NOTE | 2018-06-29 20:19 | P.PNPSY ---
Subjective Chief Complaint: see below Remarks: Patient seen for follow, chart reviewed. Discussion nursing staff reported the patient continues with episodic anxiety, disturbed sleep and isolative to his room. Patient was found lying hospital bed asleep noted to be less anxious today during interview. Patient states that he had poor sleep less evening that her mood has been "okay" that he had a panic attack this morning which last about 30 minutes. He denies any perceptional services, denies any suicidal homicidal ideations. Brief supportive psychotherapy provided. Review of Systems All other systems reviewed negative except as stated in HPI Mental Status Examination Appearance: Appropriate Consciousness: Alert Orientation: x4 Motor Activity: Normal gait Speech: Unremarkable Language: Adequate Fund of Knowledge: Adequate Attention and Concentration: Adequate Memory: Unremarkable Mood: Anxious Affect: Anxious Thought Process & Associations: Intact Thought Content: Appropriate Hallucination Type: None Suicidal Ideation: Yes (intermittent) Suicidal Plan: No Suicidal Intention: No Homicidal Ideation: No Homicidal Plan: No Homicidal Intention: No Insight: Fair Judgment: Adequate Assessment and Plan - Assessment (1) Depression Code(s): F32.9 - Major depressive disorder, single episode, unspecified Status : Acute - Plan Plan: Patient this time continues to report anxiety, recently started buspirone. Patient states that Lorazepam has not been effective and agrees to switch to hydroxyzine 50 mg every 6 hours as needed breakthrough anxiety. We will increase trazodone 200 mg p.o. at bedtime for sleep disturbance. Continue rest of medications. Continue to monitor mood and behavior. Discharge planning in progress. Justification for Continued Inpatient Stay: At risk for further decompensation at lower level of care. (1) Depression Qualifiers: Depression Type: unspecified Qualified Code(s): F32.9 - Major depressive disorder, single episode, unspecified
[2018-06-29] MEDS: Mirtazapine 15 MG Tablet PO SCH (21:32)
[2018-06-29] MEDS: traZODone 100 MG Tablet PO SCH (21:32)
[2018-06-30] MEDS: Venlafaxine XR 75 MG Capsule PO SCH (09:23)
[2018-06-30] MEDS: Mirtazapine 15 MG Tablet PO SCH (21:27)
[2018-06-30] MEDS: traZODone 100 MG Tablet PO SCH (21:27)
--- NOTE | 2018-06-30 21:44 | P.PNPSY ---
Subjective Chief Complaint: see below Remarks: Patient seen for follow, chart reviewed. Discussion nursing staff reported the patient attending groups, visible on unit. Patient was found participating in groups and adequately interacted with staff. Patient reports feeling "better" reports having had some sleep difficulty but was somewhat better, patient reports improved appetite, attending groups, and feeling good with continued depression and now having intermittent suicide ideations but states feeling safe here in the hospital. Patient continues report feeling anxious but able to use his coping skills more effectively today. Review of Systems All other systems reviewed negative except as stated in HPI Mental Status Examination Appearance: Appropriate Consciousness: Alert Orientation: x4 Motor Activity: Normal gait Speech: Unremarkable Language: Adequate Fund of Knowledge: Adequate Attention and Concentration: Adequate Memory: Unremarkable Mood: Good Affect: Anxious (less so today) Thought Process & Associations: Intact Thought Content: Appropriate Hallucination Type: None Suicidal Ideation: Yes (intermittent) Suicidal Plan: No Suicidal Intention: No Homicidal Ideation: No Homicidal Plan: No Homicidal Intention: No Insight: Fair Judgment: Adequate Assessment and Plan - Assessment (1) Depression Code(s): F32.9 - Major depressive disorder, single episode, unspecified Status : Acute - Plan Plan: Patient noted with improved mood, we will continue to formulate feeling depressed, continues with intermittent suicide ideations but contracted for safety while on the unit. Patient has not had any behavior for concerning self- harm on the unit. We will discontinue one-to-one observation for now but will be kept on close observation. We will increase mirtazapine to 30 mg p.o. at bedtime, continue rest of medications. Continue to monitor mood and behavior. Discharge planning a progress. Justification for Continued Inpatient Stay: At risk for further decompensation if at lower level of care. (1) Depression Qualifiers: Depression Type: unspecified Qualified Code(s): F32.9 - Major depressive disorder, single episode, unspecified
[2018-07-01] MEDS: Venlafaxine XR 75 MG Capsule PO SCH (09:19)
[2018-07-01] MEDS: Acetaminophen 325 MG Tablet PO PRN (09:20)
--- NOTE | 2018-07-01 13:47 | P.PNPSY ---
Subjective Chief Complaint: see below Remarks: Pt seen and discussed with staff. Chart reviewed. Pt was admitted for MDD with SI. He has been compliant with medications and care. Last night he c/o nonspecific AH and VH (shadows). Today he reported to RN that he has been having VH for sometimes and expressed significant paranoid ideations (fears that cars and airplanes are going to crash in his room). He has had panic attacks on unit, usually triggered by paranoid ideations. Pt reported a family hx of psychosis. Staff report pt has been displaying odd mannerisms. He reports that he has been having paranoid bizarre intrusive thoughts for many years which have worsened over the past months. He reports that his grandmother was dx with schizophrenia, father has paranoia and sister has been dx with bipolar disorder. Pt states that has not told anyone about his symptoms because of shame and fear. He reports that he is very depressed but is tolerating anti depressant change without side effects and feels that mood is starting to improve. Discussed with pt medication options and he consents to trial of abilify. Risks vs benefits, potential side effects and indication for use discussed with pt. Mental Status Examination Appearance: Appropriate Consciousness: Alert Orientation: x4 Motor Activity: Normal gait Speech: Unremarkable Language: Adequate Fund of Knowledge: Adequate Attention and Concentration: Adequate Memory: Unremarkable Mood: Anxious Affect: Anxious (less so today) Thought Process & Associations: Intact Thought Content: Delusional Hallucination Type: Auditory Delusion Type: Paranoid Suicidal Ideation: Yes (intermittent) Suicidal Plan: No Suicidal Intention: No Homicidal Ideation: No Homicidal Plan: No Homicidal Intention: No Insight: Fair Judgment: Adequate Assessment and Plan - Assessment (1) Depression Code(s): F32.9 - Major depressive disorder, single episode, unspecified Status : Acute - Plan Plan: Start trial of abilify and titrate to target psychosis. Justification for Continued Inpatient Stay: impairments in reality testing (1) Depression Qualifiers: Depression Type: major depressive disorder Major depression recurrence: recurrent Major depression episode severity: severe Psychotic features: with psychotic features
[2018-07-01] MEDS: traZODone 100 MG Tablet PO SCH (20:02)
[2018-07-01] MEDS: Mirtazapine 15 MG Tablet PO SCH (20:02)
[2018-07-01] MEDS ORDERED: ARIPiprazole 5 MG Tablet PO SCH (21:00)
[2018-07-02] MEDS: Venlafaxine XR 75 MG Capsule PO SCH (08:28)
--- NOTE | 2018-07-02 11:26 | P.PNPSY ---
Subjective Chief Complaint: New onset psychosis Remarks: Medical record reviewed and discussed with nursing staff. DEVI Jesus and I met with patient in the common area. Patient is paranoid, bizzare with intrusive thoughts that have increased over the past several months. He states he is seeing shadows that resemble the outline of people and at times the shadows are only of the lower portion of a person. He identifies one shadow of a male with a tall hat and a female with a gown and long hair. He states that the auditory hallucinations have been increasing impeding his ability to obtain restfull sleep. He is paranoid about rooms with four doors and discusses a vision of a wave that is going to engulf him. He is internally stimulated. He states that he has been feeling alot of anxiety which often leads to panic. He is displaying odd mannerisms that resemble tics. They are irregular jerking motions that he is unable to control. Dr. Chery saw this patient yesterday and started him on Abilify. I have discussed this patient with Dr. Chery today and she suggested Ativan 0.5 mg bid, prn for the movement. Family history of grandmother with Schizophrenia and father bipolar with paranoia. Patient will be monitored and he will be followed by a psychiatrist tomorrow for further assessment and evaluation. Review of Systems All other systems reviewed negative except as stated in HPI Mental Status Examination Appearance: Appropriate Consciousness: Alert Orientation: x4 Motor Activity: Normal gait Speech: Unremarkable Language: Adequate Fund of Knowledge: Adequate Attention and Concentration: Adequate Memory: Unremarkable Mood: Anxious Affect: Anxious (less so today) Thought Process & Associations: Intact Thought Content: Delusional Hallucination Type: Auditory Delusion Type: Paranoid Suicidal Ideation: Yes (intermittent) Suicidal Plan: No Suicidal Intention: No Homicidal Ideation: No Homicidal Plan: No Homicidal Intention: No Insight: Fair Judgment: Adequate Assessment and Plan - Assessment (1) Psychosis Code(s): F29 - Unspecified psychosis not due to a substance or known physiological condition Status: Acute - Plan Plan: Start trial of abilify and titrate to target psychosis. Justification for Continued Inpatient Stay: Moving patient to a less restricted environment may result in his decompensation.
[2018-07-02] MEDS: LORazepam 0.5 MG Tablet PO PRN (11:50)
[2018-07-02] MEDS: Acetaminophen 325 MG Tablet PO PRN (17:25)
[2018-07-02 17:38] VITALS: O2SAT 96
[2018-07-02] MEDS ORDERED: ARIPiprazole 10 MG Tablet PO SCH (21:00)
[2018-07-02] MEDS: Mirtazapine 15 MG Tablet PO SCH (21:09)
[2018-07-02] MEDS: traZODone 100 MG Tablet PO SCH (21:09)
[2018-07-03 05:23] VITALS: BP 103/56; PULSE 77; RESP 18; TEMP 97.5
[2018-07-03] MEDS: LORazepam 0.5 MG Tablet PO PRN (08:29)
[2018-07-03] MEDS: Venlafaxine XR 75 MG Capsule PO SCH (08:29)
--- NOTE | 2018-07-03 15:26 | P.TTN ---
- Patient Problems Problems: 1. Discharge planning 2. Medication compliance 3. Knowledge deficit 4. Lack of coping skills - Progress Toward Goals Provider Present: Dr. Chandan Mak Provider Input: still very anxious but if stable anticipated discharge home with mother and SMA outpatient / care coordination Nurse(s) Present: Ines: Nurse Input: started to twitch today as he heard side effects of Abilify but appears in control of his uncontrolled body movements- appears attention seeking Psychiatric Counselors Present: Lesa Pineda LCSW (very emotional and anxious , very overwhelmed. engaged often but a little attention seeking. ) Group Spec/RT/OT/BUENO Present: Irma Suh, GIN (attends all groups, pleasant and motivated ) - Documentation Teaching Recipient: Patient
--- NOTE | 2018-07-03 23:10 | P.DSPSY ---
Psychiatry Discharge Summary Inpatient Psychiatric care?: Yes Advance Directives: No Reason for Unknown:: Due to Patient Condition Mental Health Advance Directive: No Health Care Proxy: No - Admission Admission Date: June 24, 2018 21:01 - Admission Diagnosis (1) Depression Code(s): F32.9 - Major depressive disorder, single episode, unspecified Brief History: Patient is a 18-year-old male admitted for suicidal ideation with a history of multiple depressive episodes. Patient describes depressive symptoms over the last 6 months. He has had sad mood, low energy, poor sleep at 4 hours a night and poor appetite with a resulting weight loss of 20 pounds. He had been compliant with his Zoloft 100 mg daily from his medical doctor but it has had no effects in the last 6 months. Patient developed suicidal ideation last night , felt scared and called the suicide hotline. Today, patient admits to fleeting suicidal thoughts but does not have persistent ideation intent or plan. Patient says that on occasion he hears screaming in her car horns that are not there. There are no voices that are talking to him. There are no delusions that were elicited. Denies a history of tejas. Patient also complains of panic attacks with tachycardia and shortness of breath twice a week Past psychiatric history include no outpatient history and one inpatient admissions 2 years ago. Patient has had multiple suicide attempts where he tried to jump off a third story balcony while he was in the he is also try to overdose on pills. Medical history includes kidney stones and he follows up with a urologist regularly Patient is a healthy relationship with his girlfriend. He is working as a travel agency manager and lives and is close to his father Tobacco Use In Past 30 Days: No How Often Do You Have a Drink Containing Alcohol: Never Hospital Course: Patient is a 18 y/o man, single, employed, domiciled with parents, with past psychiatric history of multiple depressive episodes, one prior psychiatric hospitalizations and self reported prior suicide attempts but no history of self injurious behavior with past medical history of kidney stones, who was brought in under [facility] for suicidal ideation and was transferred to the inpatient psychiatry for further evaluation and management. Patient was started on medication regimen to target symptoms which he tolerated well with minimal side effects. Patient was admitted to a locked, inpatient psychiatric unit. Appropriate precautions were in place throughout patient's hospital stay. Patient was seen and examined on the unit by psychiatry. Psychotropic medications were adjusted. There was no evidence of any further suicidality nor homicidality on the inpatient unit as treatment progressed. Patient's mood improved with the benefit of psychopharmacologic treatment and had no behavioral disturbance since admission. Counselor has arranged for follow up appointments for continuity of care as patient would be returning back to his parents residence. On the day of discharge: Patient seen and examined; chart reviewed. Case discussed with nurse and counselor. No behavioral issues overnight. On my examination today, the patient is agreeable to continue treatment and outpatient follow up appointments. He denies any suicidal or homicidal ideation, intent or plan on direct questioning and contracts for safety. I can elicit no mood symptoms; denies any audiovisual hallucinations. No delusional material verbalized today. He denies any side effects from medications. He has an understanding of the medication regimen and indication. No physical complaints. Suicide and violence risk assessment on day of discharge both suggest lower imminent risk, and the patient's level of function is adequate for planned level of outpatient care. Patient has maximized benefit from this inpatient psychiatric hospital stay and will be discharged with follow-up as arranged by counselor. Patient advised to return to psychiatric emergency room for any concerning psychiatric symptoms. Patient agrees with plan. - Discharge Discharge Date: 07/03/18 - Discharge Diagnosis (1) Depression Code(s): F32.9 - Major depressive disorder, single episode, unspecified Status : Acute Discharge Disposition: Home - Discharge Instructions Discharge Diet: Regular Diet Activities You Can Perform: Regular- No Restrictions - Discharge Time > 30 minutes Mental Status Examination Appearance: Appropriate Consciousness: Alert Orientation: x4 Motor Activity: Normal gait Speech: Unremarkable Language: Adequate Fund of Knowledge: Adequate Attention and Concentration: Adequate Memory: Unremarkable Mood: Appropriate Affect: Appropriate Thought Process & Associations: Intact Thought Content: Appropriate Hallucination Type: None Delusion Type: None Suicidal Ideation: No Suicidal Plan: No Suicidal Intention: No Homicidal Ideation: No Homicidal Plan: No Homicidal Intention: No Insight: Fair Judgment: Adequate Discharge/Advance Care Plan - Results Vital Signs: Last Vital Signs Temp 97.5 F L 07/03/18 05:22 Pulse 77 07/03/18 05:22 Resp 18 07/03/18 05:22 BP 103/56 L 07/03/18 05:22 Pulse Ox 96 07/03/18 05:22 Lab Results: Laboratory Results Hemoglobin A1c 5.1 % (4.3-6.0) 06/25/18 08:04 Triglycerides 118 mg/dL (42-150) 06/25/18 08:04 Cholesterol 128 mg/dL (120-200) 06/25/18 08:04 LDL Cholesterol, Calc 62 mg/dL (0-99) 06/25/18 08:04 HDL Cholesterol 42.1 mg/dL (40.0-60.0) 06/25/18 08:04 TSH 1.960 uIU/mL (0.358-3.740) 06/24/18 16:26 Summary of Procedures: none Pending Results: None - Medications Number of antipsychotic medications at discharge: 1 - Discharge Care Plan Goals to Promote Your Health: * To prevent worsening of your condition and complications * To maintain your health at the optimal level Directions to Meet Your Goals: Take your medications as prescribed Follow your dietary instruction Follow activity as directed Keep your appointments as scheduled Take your immunizations and boosters as scheduled If your symptoms worsen call your PCP, if no PCP go to Urgent Care Center or Emergency Room For 02/05 questions related to your inpatient stay or results of tests pending at discharge, please contact Dr. Baudilio Mak MD at Smoking is Dangerous to Your Health. Avoid second hand smoking (1) Depression Qualifiers: Depression Type: major depressive disorder Major depression recurrence: recurrent Major depression episode severity: severe Psychotic features: with psychotic features (1) Depression Qualifiers: Depression Type: major depressive disorder Major depression recurrence: recurrent Major depression episode severity: severe Psychotic features: with psychotic features
== END 2018-07-03 15:25 | disposition home or self-care (01) ==
LOC: NEPJ 16:14 → NEDA 21:01 → H260 22:10
PROVIDERS: ADMIT Student in an Organized Health Care Education/Training Program; ATTEND Student in an Organized Health Care Education/Training Program

== ENCOUNTER 2018-07-21 08:33 | Inpatient (IN) ==
[2018-07-21 09:16] LABS: Baso % (Auto) 0.4 % (0.0-2.0); Eos % (Auto) 0.1 % (0.0-4.0); Hematocrit 42.7 % (39.0-51.0); Hemoglobin 14.7 gm/dL (13.0-17.0); Lymph # (Auto) 0.9 th/mm3 (1.0-4.8); Lymph % (Auto) 12.1 % (9.0-44.0); Mean Corpuscular HGB Conc 34.3 % (32.0-36.0); Mean Corpuscular Hemoglobin 31.3 pg (27.0-34.0); Mean Corpuscular Volume 91.1 fL (80.0-100.0); Mean Platelet Volume 8.5 fL (7.0-11.0); Mono # (Auto) 0.5 th/mm3 (0.0-0.9); Mono % (Auto) 7.2 % (0.0-8.0); Neut % (Auto) 80.2 % (16.0-70.0); Platelet Count 188 th/mm3 (150-450); Red Blood Count 4.69 mil/mm3 (4.50-5.90); Red Cell Distribution Width 13.2 % (11.6-17.2); White Blood Count 7.5 th/mm3 (4.0-11.0)
--- NOTE | 2018-07-21 09:17 | ED ---
HPI General Chief Complaint: Overdose Stated Complaint: Poss Overdose Time Seen by Provider: 07/21/18 08:40 Source: patient, old records reviewed and police Mode of arrival: EMS Limitations: no limitations History of Present Illness MD complaint: Reports intentional overdose Onset (ago): hour(s) (1) Time: 08:00 Timing confirmed by: other (Friends. He was posting his overdose on [employer]. His friends contacted the authorities.) Intent: suicide attempt How Overdose Was Discovered: other ([employer]) Context: Intentional Overdose: hearing voices and other (Long-standing history of depression) Associated symptoms: depression Treatments Prior to Arrival: none Related Data Previous Rx's Medication Instructions Recorded aripiprazole 10 mg PO HS 15 Days #15 tab 07/03/18 benztropine 0.5 mg PO DAILY 15 Days #15 tab 07/03/18 buspirone 5 mg PO TID 15 Days #45 tab 07/03/18 mirtazapine 30 mg PO HS 15 Days #30 tab 07/03/18 trazodone 100 mg PO HS 30 Days #30 tab 07/03/18 venlafaxine [Effexor XR] 150 mg PO DAILY 15 Days #15 cap 07/03/18 Allergies Allergy/AdvReac Type Severity Reaction Status Date / Time No Known Allergies Allergy Unverified 06/24/18 16:20 Review of Systems ROS: all other systems reviewed are negative [facility] Medical History Medical History Depression (Acute) Psychosis due to emotional stress (Acute) Kidney stones (Acute) Surgical History Surgical History S/P ureteral stent placement (Acute) Social History Social History Substance History: No History of Abuse Second Hand Smoke Exposure: No Smoking Status: Never smoker How Often Do You Have a Drink Containing Alcohol: Never Recent Travel in [facility] within the Last 8 Weeks: No Recent Out of Country Travel within the Last 8 Weeks: No Immunization History Tetanus Immunization: Unsure Exam Const General: cooperative, healthy appearing, comfortable, no acute distress and well developed Orientation: alert, awake and oriented x3 HENMT Head: normal to inspection, normocephalic and atraumatic Eyes Alignment and Position: alignment normal and position abnormal Conjunctivae: conjunctivae normal Sclera: sclerae normal EOM: EOM intact bilaterally Neck Neck: normal visual inspection and full ROM Chest Chest: normal inspection of the chest Resp Effort & Inspection: normal respiratory effort and able to speak in complete sentences Auscultation: clear to auscultation bilaterally Cardio Rate: regular rate Rhythm: regular rhythm GI Inspection: normal to inspection Palpation: soft Back/Spine/Pelvis Cervical Spine: cervical ROM normal Thoracic/Lumbar Spine: thoraco-lumbar ROM normal Skin General: no rashes or lesions noted, turgor normal and dry skin Neuro General: alert, awake, oriented x3, moves all extremities and CN's II-XI intact bilaterally Extrem General: normal to inspection and full ROM Psych Appearance: grossly normal Mental Status: mental status grossly normal Speech and Movement: speech and movement normal Mood: dysthymic mood Affect: sad Attitude: cooperative Thought Process: normal Thought Content: compulsions Judgment: limited Course Initial Documented Vital Signs Pulse Rate 95 H 07/21/18 08:45 Respiratory Rate 18 07/21/18 08:45 Blood Pressure 141/86 H 07/21/18 08:45 Pulse Oximetry 99 07/21/18 08:45 Last Documented Vital Signs Pulse Rate 95 H 07/21/18 08:45 Respiratory Rate 18 07/21/18 08:45 Blood Pressure 141/86 H 07/21/18 08:45 Pulse Oximetry 99 07/21/18 08:45 Medical Decision Making MDM Narrative Medical decision making narrative: This patient is brought to us by [facility] and accompanied by police because of an intentional overdose of 4 100 mg trazodone tablets. He recorded this on snap chat. His friends saw the post and contacted the authorities. Patient reports that he was hearing voices in his head telling him to harm himself. He reports that he took the pills believing that it would stop the voices. This patient is medically cleared for psychiatric evaluation. Medical Screen Exam Complete: Yes Emergency Medical Condition: Yes Differential Diagnosis Differential Diagnosis: Differential diagnosis includes but is not limited to depression with suicidal gesture, suicide attempt, suicidal ideation, attention seeking behavior. Medical Records Medical records reviewed: Yes I reviewed the patient's medical records. Patient has been admitted to psychiatry in the past. Lab Data Lab results reviewed: Yes I reviewed the patient's lab results. Result diagrams: 07/21/18 08:50 07/21/18 08:50 Lab Results 07/21/18 07/21/18 Range/Units 08:50 08:50 WBC 7.5 (4.0-11.0) th/mm3 RBC 4.69 (4.50-5.90) mil/mm3 Hgb 14.7 (13.0-17.0) gm/dL Hct 42.7 (39.0-51.0) % MCV 91.1 (80.0-100.0) fL MCH 31.3 (27.0-34.0) pg MCHC 34.3 (32.0-36.0) % RDW 13.2 (11.6-17.2) % Plt Count 188 (150-450) th/mm3 MPV 8.5 (7.0-11.0) fL Neut % (Auto) 80.2 H (16.0-70.0) % Lymph % (Auto) 12.1 (9.0-44.0) % [place] % (Auto) 7.2 (0.0-8.0) % Eos % (Auto) 0.1 (0.0-4.0) % Baso % (Auto) 0.4 (0.0-2.0) % Neut # (Auto) 6.0 (1.8-7.7) th/mm3 Lymph # (Auto) 0.9 L (1.0-4.8) th/mm3 [place] # (Auto) 0.5 (0.0-0.9) th/mm3 Eos # (Auto) 0.0 (0.0-0.4) th/mm3 Baso # (Auto) 0.0 (0.0-0.2) th/mm3 WBC Differential . Differential Comment Auto diff final Sodium 142 (136-145) meq/L Potassium 3.7 (3.5-5.1) meq/L Chloride 107 (98-107) meq/L Carbon Dioxide 27.7 (21.0-32.0) meq/L Anion Gap 7 (5-15) meq/L BUN 11 (7-18) mg/dL Creatinine 0.99 (0.60-1.30) mg/dL Estimated GFR Greater than 89 (>89) mL/min Random Glucose 87 (74-106) mg/dL Calcium 8.6 (8.5-10.1) mg/dL Total Bilirubin 0.7 (0.2-1.0) mg/dL AST 9 L (15-39) U/L ALT 15 (9-52) U/L Alkaline Phosphatase 60 (45-117) U/L Total Protein 6.8 (6.4-8.2) g/dL Albumin 3.8 (3.4-5.0) g/dL TSH 1.330 (0.358-3.740) uIU/mL Serum Alcohol Less than 3 (0-5) mg/dL ECG Data EKG Prior to Arrival: No Attestation: I personally reviewed and interpreted this ECG as follows: Discharge Plan Discharge Disposition Patient Disposition: 30 Still Patient Discharge Details Diagnosis: Depression, Drug overdose Physicians Team ED Provider: Kacie Gamez Primary Care Provider: Primary Care Heidy Slater Rxs /Orders / Referrals /Forms Prescriptions: No Action buspirone 5 mg Tablet 5 mg PO TID 15 Days Qty: 45 RF: 1 benztropine 0.5 mg Tablet 0.5 mg PO DAILY 15 Days Qty: 15 RF: 1 venlafaxine [Effexor XR] 150 mg Capsule,Extended Release 24hr 150 mg PO DAILY 15 Days Qty: 15 RF: 1 trazodone 100 mg Tablet 100 mg PO HS 30 Days Qty: 30 RF: 0 mirtazapine 15 mg Tablet 30 mg PO HS 15 Days Qty: 30 RF: 1 aripiprazole 10 mg Tablet 10 mg PO HS 15 Days Qty: 15 RF: 1 Discharge Interventions Interventions: Vital Signs Last Done: 07/21/18 08:45 Status ED Status: Medically Cleared
[2018-07-21 09:22] LABS: Albumin 3.8 g/dL (3.4-5.0); Anion Gap 7 meq/L (5-15); Aspartate Aminotransferase 9 U/L (15-39); Blood Urea Nitrogen 11 mg/dL (7-18); Calcium 8.6 mg/dL (8.5-10.1); Carbon Dioxide 27.7 meq/L (21.0-32.0); Chloride 107 meq/L (98-107); Glomerular Filtration Rate Greater Than 89 mL/min (>89); Glucose,Random 87 mg/dL (74-106); Potassium 3.7 meq/L (3.5-5.1); Sodium 142 meq/L (136-145)
[2018-07-21 09:23] LABS: Alanine Aminotransferase 15 U/L (9-52)
[2018-07-21 09:33] LABS: Alkaline Phosphatase 60 U/L (45-117); Total Protein 6.8 g/dL (6.4-8.2)
[2018-07-21 11:41] LABS: Amphetamine Screen,Urine Neg (Neg); Barbiturate Screen,Urine Neg (Neg); Cannabinoid Screen,Urine Neg (Neg); Cocaine Screen,Urine Neg (Neg)
[2018-07-21 12:02] LABS: Opiate Screen,Urine Neg (Neg)
--- NOTE | 2018-07-21 19:30 | ECG ---
Date Performed: 07/21/2018 Time Performed: 08:42:32 PTAGE: 18 years EKG: Sinus rhythm WITH MARKED SINUS ARRHYTHMIA NONSPECIFIC T-WAVE ABNORMALITY BORDERLINE ECG INTERPRETATION BASED ON A DEFAULT AGE OF 38 YEARS PREVIOUS TRACING : 06/28/2018 09.26 Since the previous tracing, no significant change not ed DOCTOR: Rayshawn Sandoval Interpretating Date/Time 07/21/2018 19:29:35
[2018-07-22] MEDS ORDERED: Aluminum/Magnesium/Simethacone Susp 30 ML UDC PO PRN (08:02)
[2018-07-22] MEDS ORDERED: Acetaminophen 325 MG Tablet PO PRN (08:02)
--- NOTE | 2018-07-22 08:15 | P.HPPSY ---
Provisional Diagnosis Admission Date: July 21, 2018 08:33 [place] I.: Schizoaffective disorder depressive type Competence Certification of Person's Competence To Provide Express and Informed Consent I have personally examined Zachariah Castellanos III, a person being served at [facility] on, July 22, 2018 0810. Express and informed consent means consent voluntarily given in writing, by a competent person, after sufficient explanation and disclosure of the subject matter involved to enable the person to make a knowing and willful decision without any element of force, fraud, deceit, duress, or other form of constraint or coercion. This person is 18 years of age or older, is not now known to be incompetent to consent to treatment with a guardian advocate, and does not have a health care surrogate or proxy currently making medical treatment decisions. I have found this person to be one of the following: [xxxxx] Competent to provide express and informed consent, as defined above, for voluntary admission to this facility and is competent to provide express and informed consent for treatment. He/she has the consistent capacity to make well reasoned, willful, and knowing decisions concerning his or her medical or mental health treatment. The person fully and consistently understands the purpose of the admission for examination/placement and is fully capable of personally exercising all rights assured [place] Incompetent to provide express and informed consent to voluntary admission, and this is incompetent to provide express and informed consent to treatment. The person must be transferred to involuntary status and a petition for a guardian advocate filed with the Circuit Court. [] Refusing to provide express and informed consent to voluntary admission but is competent to provide express and informed consent for treatment. The person must be discharged or transferred to involuntary status. Form shall be completed within 24 hours of a person's arrival at the receiving facility and filed in the clinical record of each person: 1. Admitted on a voluntary basis 2. Permitted to provide express and informed consent to his/her own treatment 3. Allowed to transfer from involuntary to voluntary status 4. Prior to permitting a person to consent to his or her own treatment after having been previously found incompetent to consent to treatment. History of Present Illness Capacity: Has capacity History of Present Illness: Patient is a 18-year-old white male comes here under [employer] act by the [facility] [employer] dated 07/21/2018 at 8:37 AM that document reviewed essentially states Zachariah Asher took approximately 4 pills known as trazodone and then effort to harm himself when he was in the process of taking more pills when he was contacted by law enforcement [place] stated that the voices in his head told him to harm himself Stephanie also stated he decided to take the pills because he believed it would stop the voices. Patient was seen screen in the ED urine toxicology negative blood alcohol level negative. Of interest patient was hospitalized here within the past month for similar episode. Patient seen in his room and J pod with nurse Rosa. He is alert and oriented calm cooperative young man short dark hair wearing dark room glasses. He stated that after his discharge from the hospital the voices became more insistent telling me he did not need to take his medication thus he stopped his Abilify and Seroquel. This led to the voices becoming more dominant and intrusive causing him to get more depressed leading to the overdose. A contributing factor may also be the fact that his girlfriend broke up with him somewhat precipitously. He states he has had difficulty with the relationship with girls all his life. He states he lives with his mother. He denies any physical or sexual abuse. Though there is mental illness that runs throughout the family of his father and his siblings. He does deny any alcohol or drug use. 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 That he graduated high school and has a few college courses in computer science. He states a history of ureteral stones and urinary stent placement. He states that the voices are quite severe even at the present time. At this time patient meets criteria for inpatient psychiatric hospitalization and stabilization though I feel he does have the capacity to sign voluntary. Thus I will lift the P[place] act allow him to sign voluntary I did review his medications. I did finish the admission psychiatric template orders. Will increase his Abilify to 15 mg daily we will increase his bedtime Seroquel to 100 mg. We will discontinue the trazodone the BuSpar. Hopeless be fairly short stay we can return her to his family. 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 Kidney stones - Surgical History Surgical History: Surgical History (Last Reviewed 07/22/18 @ 08:17 by Zachariah Potter MD) S/P ureteral stent placement - Family History Family History: Family History (Last Updated 07/22/18 @ 08:18 by Zachariah Potter MD) Other Bipolar disorder Depression - Social History I have reviewed the patient's Social History: Yes - Tobacco History Second Hand Smoke Exposure: No Tobacco Use In Past 30 Days: No Smoking Status: Never smoker - Alcohol History How Often Do You Have a Drink Containing Alcohol: Never - Substance Use History Substance History: No History of Abuse - Travel History Recent Travel in the [place] Within the Last 8 Weeks: No Recent Travel Out of the Country Within the Last 8 Weeks: No - Immunization History Tetanus Immunization: Unsure Quality Measures - Psychiatric History Psychological trauma history: Patient denies Violence risk to others in the last 6 months: Low Violence risk to self in the last 6 months: Low to moderate - Substance Abuse History Drug or alcohol use in the past 12 months: Patient denies - Patient Strengths Patient's strengths (minimum of 2): Patient verbal able access healthcare calm cooperative Medications and Allergies Allergies Allergy/AdvReac Type Severity Reaction Status Date / Time No Known Allergies Allergy Unverified 06/24/18 16:20 Results - Labs CBC & Chem 7: 07/21/18 08:50 07/21/18 08:50 Labs: Laboratory Results - last 24 hr 07/21/18 07/21/18 07/21/18 08:50 08:50 11:15 WBC 7.5 RBC 4.69 Hgb 14.7 Hct 42.7 MCV 91.1 MCH 31.3 MCHC 34.3 RDW 13.2 Plt Count 188 MPV 8.5 Neut % (Auto) 80.2 H Lymph % (Auto) 12.1 Ashley % (Auto) 7.2 Eos % (Auto) 0.1 Baso % (Auto) 0.4 Neut # (Auto) 6.0 Lymph # (Auto) 0.9 L Ashley # (Auto) 0.5 Eos # (Auto) 0.0 Baso # (Auto) 0.0 WBC Differential . Differential Comment Auto diff final Sodium 142 Potassium 3.7 Chloride 107 Carbon Dioxide 27.7 Anion Gap 7 BUN 11 Creatinine 0.99 Estimated GFR Greater than 89 Random Glucose 87 Calcium 8.6 Total Bilirubin 0.7 AST 9 L ALT 15 Alkaline Phosphatase 60 Total Protein 6.8 Albumin 3.8 TSH 1.330 Urine Opiates Screen Neg Ur Barbiturates Screen Neg Ur Amphetamines Screen Neg U Benzodiazepines Scrn Neg Urine Cocaine Screen Neg U Cannabinoids Screen Neg Serum Alcohol Less than 3 Exam Vital signs: Vital Signs 07/21/18 08:45 07/21/18 09:45 07/21/18 10:45 Temperature Pulse Rate 95 H 112 H 76 Respiratory Rate 18 18 Blood Pressure 141/86 H 124/69 107/81 Pulse Oximetry 99 99 100 07/21/18 11:45 07/21/18 12:45 07/21/18 13:45 Temperature Pulse Rate 80 76 70 Respiratory Rate 18 18 Blood Pressure 114/68 112/65 101/57 L Pulse Oximetry 98 97 07/21/18 14:45 07/21/18 23:02 07/22/18 05:23 Temperature 97.9 F 98.1 F Pulse Rate 78 86 78 Respiratory Rate 18 16 16 Blood Pressure 109/58 L 100/56 L 110/66 Pulse Oximetry 98 98 100 Intake & Output 07/21/18 07/22/18 07/22/18 18:59 06:59 18:59 Weight 56.699 kg Narrative: Patient sitting quietly in his room and J pod he is in no acute distress. Patient in no respiratory distress, no complaints of chest pain or abdominal pain. Patient moving all 4 extremities without difficulty Mental Status Examination Appearance: Appropriate Consciousness: Alert Orientation: x4 Motor Activity: Normal gait Speech: Unremarkable Language: Adequate Fund of Knowledge: Adequate Attention and Concentration: Adequate Memory: Unremarkable Mood: Other (Euthymic to mildly dysphoric) Affect: Other (Slight decreased range and intensity) Thought Process & Associations: Intact Thought Content: Hallucinations Hallucination Type: Auditory (Command insulting nature) Delusion Type: None Suicidal Ideation: Yes Suicidal Plan: Yes (Vague) Suicidal Intention: Yes (Vague) Homicidal Ideation: No Homicidal Plan: No Homicidal Intention: No Insight: Fair Judgment: Impulsive Assessment and Plan - Assessment (1) Schizoaffective disorder, depressive type Code(s): F25.1 - Schizoaffective disorder, depressive type Status: Acute - Plan Plan: Estimated LOS: [] days Remains somewhat depressed and psychotic with vague suicidal ideation and auditory hallucinations Justification for Continued Inpatient Stay: At this time patient would decompensate a place to a lower level of care Discharge Planning: Probable return home with mother Request Healthcare Surrogate/Guardian Advocate?: No
[2018-07-22] MEDS: Venlafaxine XR 75 MG Capsule PO SCH (12:45)
[2018-07-22] MEDS ORDERED: Influenza (Quadrivalent) Vaccine 0.5 ML Syringe IM ONE (20:00)
[2018-07-22] MEDS: Mirtazapine 15 MG Tablet PO SCH (21:48)
[2018-07-22] MEDS: QUEtiapine 100 MG Tablet PO SCH (23:50)
[2018-07-23] MEDS: Venlafaxine XR 75 MG Capsule PO SCH (08:53)
--- NOTE | 2018-07-23 13:21 | P.PNPSY ---
Subjective Remarks: Reviewed electronic medical records and discussed case with staff. Follow-up was conducted in the dayroom. I am familiar with this patient as I see him at [facility]. He states that the auditory hallucinations are command and have become increasing louder. He refers to the visual disturbances as "zombies." Abilify was increased to 15 mg and the Seroquel were increase yesterday. Will continue to monitor and refer to psychiatrist for medications changes if the voices do not subside. Patient is eating. Sleeping is moderate and intermittent. Denies SI/HI. Review of Systems All other systems reviewed negative except as stated in HPI Mental Status Examination Appearance: Appropriate Consciousness: Alert Orientation: x4 Motor Activity: Normal gait Speech: Unremarkable Language: Adequate Fund of Knowledge: Adequate Attention and Concentration: Adequate Memory: Unremarkable Mood: Other (Euthymic to mildly dysphoric) Affect: Other (Slight decreased range and intensity) Thought Process & Associations: Intact Thought Content: Hallucinations Hallucination Type: Auditory (Command insulting nature) Delusion Type: None Suicidal Ideation: No Suicidal Plan: No Suicidal Intention: No Homicidal Ideation: No Homicidal Plan: No Homicidal Intention: No Insight: Fair Judgment: Impulsive Assessment and Plan - Assessment (1) Schizo-affective schizophrenia Code(s): F25.0 - Schizoaffective disorder, bipolar type Status: Acute - Plan Plan: Estimated LOS: [] days Continue current plan of care. Psychiatrist will see patient on Tuesday. Justification for Continued Inpatient Stay: Moving patient to a less restrictive environment may result in his decompensation. Request Healthcare Surrogate/Guardian Advocate?: No
[2018-07-23] MEDS: Mirtazapine 15 MG Tablet PO SCH (20:35)
[2018-07-23] MEDS: QUEtiapine 100 MG Tablet PO SCH (20:35)
[2018-07-24] MEDS: Venlafaxine XR 75 MG Capsule PO SCH (08:13)
--- NOTE | 2018-07-24 13:25 | P.PNPSY ---
Subjective Remarks: Patient seen and examined with nurse. Chart reviewed. Case discussed with nursing staff. Nurse reports that patient is complaining of seeing zombies at the window and dirt tracks on the floor. He also complains of difficulty voiding urine. On my examination today, the patient presents as quite anxious. He is rubbing his left forearm in an anxious fashion. He says that his Atarax is not helping for his anxiety; somewhat med seeking for Ativan. He says that he sees a "shadow man" who talks to the patient and, for example, told him it was ok to overdose prior to admission. He does complain of ongoing CAH to self-injure but contracts for safety on the inpatient unit and denies active SI at this time. He also reports that he hears voices screaming. He says that he gets "obsessed with people and things." No reported targets of his obsession on the inpatient unit. No side effects from medications. We discuss pharmacotherapeutic options for management of his psychiatric condition. Patient does complain of difficulty initiating urine flow but has no other physical complaints. Urinary issue is reportedly chronic, and the patient has an outpatient urologist. Vital Signs Temp Pulse Resp BP Pulse Ox 07/24/18 04:55 97.9 F 69 16 110/72 98 07/23/18 17:30 98.1 F 97 H 16 125/74 98 Intake and Output 07/23/18 07/24/18 07/24/18 22:59 06:59 14:59 Other: Weight 54.5 kg Laboratory Tests 07/21/18 07/21/18 07/21/18 08:50 08:50 11:15 WBC 7.5 Hgb 14.7 Plt Count 188 Sodium 142 Potassium 3.7 Chloride 107 Carbon Dioxide 27.7 BUN 11 Creatinine 0.99 Estimated GFR Greater than 89 AST 9 L ALT 15 Alkaline Phosphatase 60 TSH 1.330 Urine Opiates Screen Neg Ur Barbiturates Screen Neg Ur Amphetamines Screen Neg U Benzodiazepines Scrn Neg Urine Cocaine Screen Neg U Cannabinoids Screen Neg Serum Alcohol Less than 3 Labs reviewed. EKG read as sinus rhythm with QTC of 407 ms, not prolonged. Review of Systems All other systems reviewed negative except as stated in HPI Mental Status Examination Appearance: Appropriate Consciousness: Alert Orientation: Person, Place (at least) Motor Activity: Normal gait, Other (No motor abnormalities noted) Speech: Unremarkable Language: Adequate Fund of Knowledge: Adequate Attention and Concentration: Adequate Memory: Unremarkable Mood: Anxious Affect: Anxious Thought Process & Associations: Intact Thought Content: Hallucinations Hallucination Type: Auditory, Visual, Command (As noted above) Delusion Type: None Suicidal Ideation: No Suicidal Plan: No Suicidal Intention: No (Contracts for safety on the inpatient unit) Homicidal Ideation: No Homicidal Plan: No Homicidal Intention: No Insight: Fair Judgment: Impulsive Assessment and Plan - Assessment (1) Schizoaffective disorder, depressive type Code(s): F25.1 - Schizoaffective disorder, depressive type Status: Acute - Plan Plan: Current psychotropic regimen reveals significant polypharmacy. Patient does remain decompensated with respect to his psychotic illness. I will titrate the patient's Seroquel to 50 mg morning and afternoon and 150 mg at bedtime to try to bring current psychiatric symptoms under better control. Long-term goal will be to titrate Seroquel to effect and as tolerated and taper and perhaps discontinue Abilify to reduce antipsychotic polypharmacy. This may also allow us to discontinue the patient's scheduled Cogentin, which may be contributing to his urinary issues. I will check a urinalysis to rule out acute UTI. Continue to monitor on the inpatient unit. Continue other medications and care as ordered. Justification for Continued Inpatient Stay: Medication changes. Impairment in reality construction. High risk for decompensation in less restrictive environment. Discharge Planning: Pending psychiatric stabilization. Request Healthcare Surrogate/Guardian Advocate?: No
[2018-07-24] MEDS ORDERED: QUEtiapine 25 MG Tablet PO SCH (15:00)
[2018-07-24] MEDS: Mirtazapine 15 MG Tablet PO SCH (21:18)
[2018-07-25] MEDS: Venlafaxine XR 75 MG Capsule PO SCH (08:12)
--- NOTE | 2018-07-25 11:46 | P.PNPSY ---
Subjective Remarks: Patient seen and examined with nurse. Chart reviewed. Case discussed with nursing staff. Case discussed in treatment team. Patient noted by therapists to display some borderline personality traits. On my examination today, the patient complains of ongoing low mood. He does note that his anxiety level is somewhat decreased with medication adjustments. He complains of ongoing paranoia and says that his hallucinations were "awful" last night. He reports visual hallucinations of figures and auditory hallucinations of screaming. He endorses ongoing suicidal ideation without specific plan and does continue to contract for safety on the inpatient unit. He denies side effects from medications. He does complain of ongoing issues with initiating urine stream. No other physical complaints. Vital Signs Temp Pulse Resp BP Pulse Ox 07/25/18 06:00 97.3 F L 91 H 18 110/66 99 Labs reviewed. No new labs. Review of Systems All other systems reviewed negative except as stated in HPI Mental Status Examination Appearance: Appropriate Consciousness: Alert Orientation: Person, Place (at least) Motor Activity: Normal gait, Other (No abnormal motor movements noted) Speech: Unremarkable Language: Adequate Fund of Knowledge: Adequate Attention and Concentration: Adequate Memory: Unremarkable Mood: Sad, Anxious (Somewhat less so) Affect: Blunt Thought Process & Associations: Intact Thought Content: Hallucinations Hallucination Type: Auditory, Visual Delusion Type: None Suicidal Ideation: Yes Suicidal Plan: No Suicidal Intention: No (Contracts for safety on inpatient unit) Homicidal Ideation: No Homicidal Plan: No Homicidal Intention: No Insight: Fair Judgment: Impulsive Assessment and Plan - Assessment (1) Schizoaffective disorder, depressive type Code(s): F25.1 - Schizoaffective disorder, depressive type Status: Acute - Plan Plan: Titrate Seroquel to 75 mg morning and afternoon and 200 mg at bedtime. Continue Abilify as ordered for now, although long-term goal is to taper and perhaps discontinue this medication as dose of Seroquel is titrated. Continue other psychotropics as ordered. I will request hospitalist consultation to address patient's urinary complaints. Patient notes that he is lactose intolerant, and I have added this to his allergy/adverse reaction list and will modify his diet appropriately. Continue to monitor on the inpatient unit. Continue other medications and care as ordered. Justification for Continued Inpatient Stay: Medication changes. Monitoring for impairment in safety. Impairment in reality construction. High risk for decompensation in less restrictive environment. Discharge Planning: Pending psychiatric stabilization. Request Healthcare Surrogate/Guardian Advocate?: No
--- NOTE | 2018-07-25 14:36 | P.TTN ---
- Patient Problems Problems: 1. Discharge planning 2. Medication compliance 3. Knowledge deficit 4. Lack of coping skills - Progress Toward Goals Provider Present: Dr. Jamel Pérez Provider Input: 07/25/18; MD is titrating Seroquel while tapering abilify with goal of single antipsychotic medication for this pt. Pt is currently meeting inpt criteria. Psychiatric Counselors Present: Roxanne Eubanks [facility] Psychiatric Therapist Input: 07/25/18: Roxanne and Kim to follow this pt for d/c planning options. Group Spec/RT/OT/BUENO Present: Mor Caldera OT, MYLES Daly Group Spec/RT/OT/BUENO Input: 07/25: Pt does attend some groups, he is appropriate and participates. Additional Input: 07/25/18: Pt is currently meeting inpt status as he is not stabilized on his anti-psychotic. D/c planning options to be explored by Roxanne with other counselor assistance. - Documentation Teaching Recipient: Patient
[2018-07-25] MEDS: QUEtiapine 25 MG Tablet PO SCH (15:55)
[2018-07-25 16:44] LABS: Bilirubin,Urine Negative (Negative); Clarity,Urine Cloudy (Clear); Color,Urine Yellow (Yellw/Straw); Glucose,Urine (UA) Negative (Negative); Leukocyte Esterase,Urine Negative (Negative); Nitrite,Urine Negative (Negative); Specific Gravity,Urine 1.011 (1.002-1.035)
[2018-07-25 16:46] LABS: Amorphous Sediment,Urine Few /hpf
[2018-07-25] MEDS: Mirtazapine 15 MG Tablet PO SCH (21:22)
[2018-07-26] MEDS: Venlafaxine XR 75 MG Capsule PO SCH (08:50)
[2018-07-26] MEDS: QUEtiapine 25 MG Tablet PO SCH (09:03)
--- NOTE | 2018-07-26 12:10 | P.CON ---
History of Present Illness Service: [facility] Consult date: 07/25/18 Requesting Physician: Sami Pérez Reason for Consult: Complaints of urinary hesitancy Primary Care Provider: No Primary Care Physician Chief Complaint: "It's hard to urinate" History of Present Illness: 18-year-old male with past medical history significant for nephrolithiasis and depression who was brought to the emergency department on 07/21 under a Patel act after patient apparently took approximately 4 pills known as trazodone in an effort to harm himself. Patient also reported to law enforcement that he was hearing voices. [facility] has been consulted due to patient's complaints of urinary hesitancy. Patient reports that he has been seen by a urologist as an outpatient and states that the urologist was more concerned over his kidney stones as opposed to his urinary hesitancy. Patient reports that he has a history of renal stones and had lithotripsy 5 years ago. Patient complains of hesitancy as as well as a intermittent stream. He denies any dysuria, hematuria or suprapubic pain. Patient also denies any fevers, chills, nausea, vomiting, diarrhea or penile discharge. Patient reports that he will sometimes get pains on his flanks which she attributes to kidney stones. He denies ever trying any medications to help with urinary hesitancy states that urinary hesitancy has been ongoing for about 6 months. Voices no other acute concerns or complaints at the current moment. 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 Kidney stones - Surgical History Surgical History: Surgical History (Last Reviewed 07/26/18 @ 14:47 by Vinicio Streeter) S/P ureteral stent placement - Family History Family History: Family History (Last Reviewed 07/26/18 @ 14:47 by Vinicio Streeter) Other Bipolar disorder Depression - Tobacco History Second Hand Smoke Exposure: No Tobacco Use In Past 30 Days: No Smoking Status: Never smoker - Alcohol History How Often Do You Have a Drink Containing Alcohol: Never - Substance Use History Substance History: No History of Abuse - Travel History Recent Travel in the [place] Within the Last 8 Weeks: No Recent Travel Out of the Country Within the Last 8 Weeks: No - Immunization History Tetanus Immunization: Unsure Hx Influenza Vaccine This Season: No Medications and Allergies Active Medications: Active Medications Acetaminophen (Tylenol) 650 mg PO Q4H PRN PRN Reason: Pain 1-5 or Temp >101F Last Admin: 07/23/18 20:35 Dose: 650 mg Al Hydrox/Mg Hydrox/Simethicone (Mag-Al Plus Susp Liq) 30 ml PO Q6H PRN PRN Reason: DYSPEPSIA Al Hydroxide/Mg Hydroxide (Milk Of Magnesia Liq) 30 ml PO Q12H PRN PRN Reason: Mild Constipation Aripiprazole (Abilify) 15 mg PO DAILY [facility] Last Admin: 07/26/18 08:52 Dose: 15 mg Benztropine Mesylate (Cogentin) 0.5 mg PO DAILY [facility] Last Admin: 07/26/18 08:48 Dose: 0.5 mg Hydroxyzine HCl (Atarax) 50 mg PO Q6H PRN PRN Reason: ANXIETY Last Admin: 07/26/18 08:50 Dose: 50 mg Mirtazapine (Remeron) 30 mg PO [facility] Last Admin: 07/25/18 21:22 Dose: 30 mg Miscellaneous (Pill Splitter) 1 each OTHER UNSCH [facility] Quetiapine Fumarate (Seroquel) 75 mg PO BID@09,15 [facility] Last Admin: 07/26/18 09:03 Dose: 75 mg Quetiapine Fumarate (Seroquel) 200 mg PO [facility] Last Admin: 07/25/18 21:21 Dose: 200 mg Venlafaxine HCl (Effexor Xr) 150 mg PO DAILY [facility] Last Admin: 07/26/18 08:50 Dose: 150 mg Allergies Allergy/AdvReac Type Severity Reaction Status Date / Time lactose AdvReac Unknown Verified 07/25/18 14:34 Physical Exam Vital signs: Vital Signs 07/26/18 05:51 Temperature 97.4 F L Pulse Rate 92 H Respiratory Rate 15 Blood Pressure 106/57 L Pulse Oximetry 100 Assessment and Plan - Plan 18-year-old male with past medical history significant for nephrolithiasis and depression who was brought to the emergency department on 07/21 under a Patel act after patient apparently took approximately 4 pills known as trazodone in an effort to harm himself. Patient also reported to law enforcement that he was hearing voices. [facility] has been consulted due to patient's complaints of urinary hesitancy. Hx Nephrolithiasis, chronic Urinary hesitancy, chronic UA negative, G&C negative -Patient with over 5-year history of renal stones requiring lithotripsy in the past. Being followed by urologist as an outpatient, currently on no medications for hesitancy. -Cogentin could be attributing to hesitancy although patient reports that this is been ongoing for 6 months. -Trial of Flomax, possible side effects and mechanism of action for medication discussed with patient, verbalized understanding -PRN ibuprofen for back and flank pain -Is aware of diet he should follow due to calcium stones. Depression -Treatment plan per psychiatry DVT prophylaxisambulation Thank you for this consultation. We will continue to follow along. Discussed Condition With: Patient and nursing staff.
--- NOTE | 2018-07-26 13:09 | P.PNPSY ---
Subjective Remarks: Patient seen and examined. Chart reviewed. On my examination today, patient complains of ongoing anxiety. The patient notes that catastrophic thinking leads him to feel anxious which leads him to feel depressed and paranoid, which results in worsening of his reported hallucinations. He is somewhat medication seeking for Ativan, and we discussed alternative strategies for management of his anxiety. We discussed alternative pharmacotherapeutic options and settle on an off label trial of gabapentin. He is also agreeable to further titration of Seroquel for management of reported hallucinations. He did sleep somewhat better with adjustment in Seroquel dosing. No SI or HI voiced. Some cluster B personality traits noted. No side effects from medications. No new physical complaints, although urinary issue is reportedly ongoing. Vital Signs Temp Pulse Resp BP Pulse Ox 07/26/18 05:51 97.4 F L 92 H 15 106/57 L 100 Laboratory Results - last 24 hr 07/25/18 07/25/18 11:15 15:30 Urine Color Yellow Urine Clarity Cloudy H Urine pH 7.0 Ur Specific Centre 1.011 Urine Protein Negative Urine Glucose (UA) Negative Urine Ketones Negative Urine Occult Blood Negative Urine Nitrate Negative Urine Bilirubin Negative Urine Urobilinogen Less than 2 Ur Leukocyte Esterase Negative Urine WBC 2 Amorphous Sediment Few H Micro UA Comment Culture not ind Ur Microscopic Review Not Reportable Urine Culture Comments Culture not ind Chlam trachomat DNA PCR Not detected N.gonorrhoeae DNA (PCR) Not detected Labs reviewed. Review of Systems All other systems reviewed negative except as stated in HPI Mental Status Examination Appearance: Appropriate Consciousness: Alert Orientation: Person, Place (at least) Motor Activity: Normal gait, Other (No motor abnormalities noted) Speech: Unremarkable Language: Adequate Fund of Knowledge: Adequate Attention and Concentration: Adequate Memory: Unremarkable Mood: Anxious Affect: Blunt Thought Process & Associations: Intact Thought Content: Hallucinations Hallucination Type: Auditory, Visual Delusion Type: None Suicidal Ideation: No Homicidal Ideation: No Insight: Fair Judgment: Impulsive Assessment and Plan - Assessment (1) Schizoaffective disorder, depressive type Code(s): F25.1 - Schizoaffective disorder, depressive type Status: Acute - Plan Plan: Titrate Seroquel to 100 mg morning and afternoon and 250 mg at bedtime to target reported psychotic symptoms. I will continue the Abilify as ordered, although as previously noted the goal is to taper and perhaps discontinue this agent. I am loath to do so now however as the patient remains fairly symptomatic by his report and is not experiencing reported side effects. It is possible there is a personality component that is perpetuating his psychiatric symptomatology. Add gabapentin for management of anxiety. R/P/A for medication changes discussed with patient. Continue other psychotropics as ordered. Hospitalist input appreciated. Continue to monitor on the inpatient unit. Continue other medications and care as ordered. Justification for Continued Inpatient Stay: Medication changes. Impairment in reality construction. Risk for decompensation in less restrictive environment. Discharge Planning: Pending psychiatric stabilization. Request Healthcare Surrogate/Guardian Advocate?: No
[2018-07-26] MEDS: QUEtiapine 100 MG Tablet PO SCH (15:05)
[2018-07-26] MEDS: Gabapentin 100 MG Capsule PO SCH ×2 (15:05→21:32)
[2018-07-26] MEDS ORDERED: QUEtiapine 100 MG Tablet PO SCH (21:00)
[2018-07-26] MEDS: Mirtazapine 15 MG Tablet PO SCH (21:32)
[2018-07-27] MEDS: Gabapentin 100 MG Capsule PO SCH ×3 (08:33→21:57)
[2018-07-27] MEDS: Venlafaxine XR 75 MG Capsule PO SCH (08:34)
[2018-07-27] MEDS: QUEtiapine 100 MG Tablet PO SCH ×2 (09:30→15:14)
[2018-07-27] MEDS: Ibuprofen 600 MG Tablet PO PRN ×2 (11:29→18:25)
--- NOTE | 2018-07-27 13:38 | P.PNPSY ---
Subjective Remarks: Patient seen and examined with nurse. Chart reviewed. Case discussed with nursing staff. Nursing reports that patient shared that his auditory hallucinations are now generally positive in nature. On my examination today, the patient confirms that the voices are indeed less negative. For example they have been telling him that he is "looking good." He complains of ongoing low mood and anxiety but verbalizes no suicidal ideation. He complains of ongoing poor sleep. He is agreeable to titration of Seroquel and gabapentin to manage residual symptoms. No side effects from medications. No physical complaints. Vital Signs Temp Pulse Resp BP Pulse Ox 07/27/18 06:15 97.4 F L 74 16 95/50 L 100 07/26/18 18:19 97.7 F 155 H 18 121/69 98 Intake and Output 07/27/18 07/27/18 07/27/18 06:59 14:59 22:59 Other: Weight 56.2 kg Labs reviewed. No new labs. Review of Systems All other systems reviewed negative except as stated in HPI Mental Status Examination Appearance: Appropriate Consciousness: Alert Orientation: Person, Place (at least) Motor Activity: Normal gait, Other (No abnormal motor movements noted) Speech: Unremarkable Language: Adequate Fund of Knowledge: Adequate Attention and Concentration: Adequate Memory: Unremarkable Mood: Anxious Affect: Blunt Thought Process & Associations: Intact Thought Content: Hallucinations Hallucination Type: Auditory Delusion Type: None Suicidal Ideation: No Homicidal Ideation: No Insight: Fair Judgment: Impulsive Assessment and Plan - Assessment (1) Schizoaffective disorder, depressive type Code(s): F25.1 - Schizoaffective disorder, depressive type Status: Acute - Plan Plan: Titrate nighttime dose of Seroquel to 300 mg at bedtime to help with sleep and with reported psychotic symptoms. Titrate gabapentin to 200 mg 3 times daily to help manage anxiety. Hospitalist input noted and appreciated. Continue to monitor on the inpatient unit. Continue other medications and care as ordered. Justification for Continued Inpatient Stay: Medication changes. Reported impairment in reality construction. High risk for decompensation in less restrictive environment. Discharge Planning: Pending psychiatric stabilization. Request Healthcare Surrogate/Guardian Advocate?: No
--- NOTE | 2018-07-27 14:53 | P.PN ---
Subjective Interval history: Follow-up for urinary hesitancy and history of nephrolithiasis. Patient is seen and examined in his room. He reports some back pain, but has been taking Ibuprofen for this. He also states that the Flomax has helped with urinary hesitancy. Still has some pausing with urination, but overall improved. Denies any dizziness, or lightheadedness or dysuria. Physical Exam Vital signs: Vital Signs 07/26/18 18:19 07/27/18 06:15 Temperature 97.7 F 97.4 F L Pulse Rate 155 H 74 Respiratory Rate 18 16 Blood Pressure 121/69 95/50 L Pulse Oximetry 98 100 Intake & Output 07/26/18 07/27/18 07/27/18 18:59 06:59 18:59 Weight 56.2 kg Narrative: GENERAL: Well developed, well nourished young male in no acute distress. SKIN: Warm and dry. HEAD: Atraumatic. Normocephalic. EYES: Pupils equal and round. No scleral icterus. No injection or drainage. ENT: No nasal bleeding or discharge. Mucous membranes pink and moist. NECK: Trachea midline. CARDIOVASCULAR: Regular rate and rhythm. RESPIRATORY: No accessory muscle use. Clear to auscultation. Breath sounds equal bilaterally. GASTROINTESTINAL: Abdomen soft, non-tender, nondistended.+ bowel sounds. MUSCULOSKELETAL: Moving all extremities, ambulating without assistive devices, no edema noted. NEUROLOGICAL: Awake and alert. No obvious cranial nerve deficits. Motor grossly within normal limits. Normal speech. PSYCHIATRIC: Appropriate mood and affect; insight and judgment normal. Results - Labs CBC & Chem 7: 07/21/18 08:50 07/21/18 08:50 Assessment and Plan - Plan 18-year-old male with past medical history significant for nephrolithiasis and depression who was brought to the emergency department on 07/21 under a Patel act after patient apparently took approximately 4 pills known as trazodone in an effort to harm himself. Patient also reported to law enforcement that he was hearing voices. [facility] has been consulted due to patient's complaints of urinary hesitancy. Hx Nephrolithiasis, chronic Urinary hesitancy, chronic UA negative, G&C negative -Patient with over 5-year history of renal stones requiring lithotripsy in the past. Being followed by urologist as an outpatient, currently on no medications for hesitancy. -Cogentin could be attributing to hesitancy although patient reports that this is been ongoing for 6 months. -Improvement in urinary hesitancy with Flomax. Prescription provided for patient, recommended to follow-up with his urologist once discharged. -PRN ibuprofen for back pain. -Is aware of diet he should follow due to calcium stones. Depression -Treatment plan per psychiatry DVT prophylaxisambulation [facility] will sign off, please reconsult if needed. Discussed Condition With: Patient and RN.
[2018-07-27] MEDS: Mirtazapine 15 MG Tablet PO SCH (21:57)
--- NOTE | 2018-07-28 09:52 | P.PNPSY ---
Subjective Remarks: Patient seen and examined with nurse. Chart reviewed. Case discussed with nursing staff. Patient told nursing staff that auditory hallucinations are decreasing but at the same time feels that Seroquel is exacerbating these hallucinations. Case discussed in treatment team. Therapists note that patient 's anxiety seems somewhat exaggerated. On my examination today, the patient tells me "I think I need to get off the Seroquel." He complains that this medication is making him feel too sedated and that his auditory hallucinations are unchanged. This report is in contrast to report from nursing staff and also to his report to me yesterday when he said that the quality of the voices had changed. Nonetheless, the patient is fairly insistent on transitioning away from Seroquel. We discussed his alternative options. We will plan to titrate the Abilify instead. I will leave the nighttime dose of Seroquel in place for now to prevent significant rebound insomnia. The patient complains of ongoing low mood and suicidal ideation, although he does contract for safety on the unit. He complains of ongoing anxiety, although this does seem to be in service of requesting Ativan, which he does fairly forcefully today. Cluster B personality traits noted. Besides sedation, no reported side effects from medications. No physical complaints for me, although the patient does later complain of left flank pain to the nurse. Vital Signs Temp Pulse Resp BP Pulse Ox 07/28/18 06:28 98.1 F 87 16 111/59 L 99 07/27/18 18:11 98.4 F 104 H 16 118/57 L 99 Intake and Output 07/27/18 07/28/18 07/28/18 22:59 06:59 14:59 Intake Total 360 / 360 Balance 360 / 360 Intake: Oral 360 / 360 Labs reviewed. Review of Systems All other systems reviewed negative except as stated in HPI Mental Status Examination Appearance: Appropriate Consciousness: Alert Orientation: Person, Place (at least) Motor Activity: Normal gait, Other (No motoric abnormalities noted) Speech: Unremarkable Language: Adequate Fund of Knowledge: Adequate Attention and Concentration: Adequate Memory: Unremarkable Mood: Anxious Affect: Blunt Thought Process & Associations: Intact Thought Content: Hallucinations Hallucination Type: Auditory Delusion Type: None Suicidal Ideation: Yes Suicidal Plan: No Suicidal Intention: No (Contracts for safety on inpatient unit) Homicidal Ideation: No Insight: Fair Judgment: Impulsive Assessment and Plan - Assessment (1) Schizoaffective disorder, depressive type Code(s): F25.1 - Schizoaffective disorder, depressive type Status: Acute - Plan Plan: Discontinue daytime doses of Seroquel and titrate Abilify to 20mg daily for ongoing complaints of psychotic symptoms. Plan for further cross-taper from Seroquel to Abilify. Titrate gabapentin to 300mg TID to manage anxiety. Discussed complaints of flank pain with midlevel provider from hospitalist service; she will come to evaluate the patient today. Continue to monitor on the inpatient unit. Continue other medications and care as ordered. Justification for Continued Inpatient Stay: Medication changes. Risk for decompensation in less restrictive environment. Discharge Planning: Pending psychiatric stabilization. Request Healthcare Surrogate/Guardian Advocate?: No
[2018-07-28] MEDS: Venlafaxine XR 75 MG Capsule PO SCH (10:15)
--- NOTE | 2018-07-28 13:11 | P.PN ---
Subjective Interval history: Reconsult due to left flank pain. Complaints of left side and LLQ abd pain. Nurse reports patient was yelling out earlier in pain. Patient does have a history of renal stones in the past. Denies any fevers, chills, nausea, vomiting, or diarrhea. Physical Exam Vital signs: Vital Signs 07/27/18 18:11 07/28/18 06:28 Temperature 98.4 F 98.1 F Pulse Rate 104 H 87 Respiratory Rate 16 16 Blood Pressure 118/57 L 111/59 L Pulse Oximetry 99 99 Intake & Output 07/27/18 07/28/18 07/28/18 18:59 06:59 18:59 Intake Total 360 / 360 Balance 360 / 360 Intake: Oral 360 / 360 Narrative: GENERAL: Well developed, well nourished young male in no acute distress. SKIN: Warm and dry. HEAD: Atraumatic. Normocephalic. EYES: Pupils equal and round. No scleral icterus. No injection or drainage. ENT: No nasal bleeding or discharge. Mucous membranes pink and moist. NECK: Trachea midline. CARDIOVASCULAR: Regular rate and rhythm. RESPIRATORY: No accessory muscle use. Clear to auscultation. Breath sounds equal bilaterally. GASTROINTESTINAL: Abdomen soft, non-tender, nondistended.+ bowel sounds. MUSCULOSKELETAL: Moving all extremities, ambulating without assistive devices, no edema noted. Left CVA tenderness. NEUROLOGICAL: Awake and alert. No obvious cranial nerve deficits. Motor grossly within normal limits. Normal speech. PSYCHIATRIC: Appropriate mood and affect; insight and judgment normal. Results - Labs CBC & Chem 7: 07/21/18 08:50 07/21/18 08:50 Assessment and Plan - Plan 18-year-old male with past medical history significant for nephrolithiasis and depression who was brought to the emergency department on 07/21 under a Patel act after patient apparently took approximately 4 pills known as trazodone in an effort to harm himself. Patient also reported to law enforcement that he was hearing voices. [facility] has been consulted due to patient's complaints of urinary hesitancy. Hx Nephrolithiasis, chronic Urinary hesitancy, chronic UA negative, G&C negative -Patient with over 5-year history of renal stones requiring lithotripsy in the past. Being followed by urologist as an outpatient, currently on no medications for hesitancy. -Cogentin could be attributing to hesitancy although patient reports that this is been ongoing for 6 months. -Improvement in urinary hesitancy with Flomax. Prescription provided for patient, recommended to follow-up with his urologist once discharged. -Ongoing complaints of left flank pain. CT of abdomen pelvis done today reviewed no acute findings, tiny nonobstructing right renal calculus and mild constipation. -PRN ibuprofen for back pain. -Is aware of diet he should follow due to calcium stones. Depression -Treatment plan per psychiatry DVT prophylaxisambulation [facility] will sign off, please reconsult if needed. Discussed Condition With: Patient, RN, .
[2018-07-28] MEDS: Ibuprofen 600 MG Tablet PO PRN (13:29)
--- NOTE | 2018-07-28 13:56 | P.TTN ---
- Patient Problems Problems: 1. Discharge planning 2. Medication compliance 3. Knowledge deficit 4. Lack of coping skills - Progress Toward Goals Provider Present: Dr. Jamel Pérez Provider Input: 07/28/18- Elisa- increasing Seroquel, patient contiues to sefl report intense anxiety, may be attention seeking. 07/25/18; MD is titrating Seroquel while tapering abilify with goal of single antipsychotic medication for this pt. Pt is currently meeting inpt criteria. Nurse Input: 07/28/18- Yaar- Patient is expressing desire for medication adjustment Psychiatric Counselors Present: Roxanne Eubanks [facility] Psychiatric Therapist Input: 07/28/18- Roxanne- Patient expresses helplessness and hopelessness yet is cooperative on unit and engaged with others. Patient should be able to dicharge when stable to parents home. 07/25/18: Roxanne and Kim to follow this pt for d/c planning options. Group Spec/RT/OT/BUENO Present: GIN Gonzales Group Spec/RT/OT/BUENO Input: 07/28/18: Irma Patient does attend groups, appropriate, can become overwhelmed at times. 07/25: Pt does attend some groups , he is appropriate and participates. Additional Input: 07/25/18: Pt is currently meeting inpt status as he is not stabilized on his anti-psychotic. D/c planning options to be explored by Roxanne with other counselor assistance. - Documentation Teaching Recipient: Patient
--- NOTE | 2018-07-28 14:06 | CT ---
EXAM DATE: 07/28/2018 1:39 PM EDT AGE/SEX: 18 years / Male INDICATIONS: Left lower abdominal pain. CLINICAL DATA: This is the patient's initial encounter. Patient reports that signs and symptoms have been present for 1 day and indicates a pain score of 6/10. MEDICAL/SURGICAL HISTORY: Renal calculi. . ureteral stents RADIATION DOSE: 3.99 CTDI (mGy) [place] [facility] [place]. . TECHNIQUE: Multiple contiguous axial images were obtained through the abdomen. Images were obtained using multiple row detector helical technique. Using automated exposure control and adjustment of the mA and/or kV according to patient size, radiation dose was kept as low as reasonably achievable to o btain optimal diagnostic quality images. DICOM format image data is available electronically for rev iew and comparison. FINDINGS: Lung bases are clear. No acute findings in the liver, spleen, adrenals, kidneys or pancreas. There is a tiny 1 mm nonobstructing calculus lower pole right kidney. No left renal calculi identified. No acute bony abnormalities are seen. CONCLUSION: 1. No acute findings on abdomen and pelvic CT. Tiny nonobstructing right renal calculus. Mild consti pation. Electronically signed by: Dirk English MD 07/28/2018 2:05 PM EDT
[2018-07-28] MEDS: Gabapentin 100 MG Capsule PO SCH ×2 (14:47→21:17)
[2018-07-28] MEDS: Mirtazapine 15 MG Tablet PO SCH (21:18)
[2018-07-29] MEDS: Gabapentin 100 MG Capsule PO SCH ×3 (08:23→21:31)
[2018-07-29] MEDS: Venlafaxine XR 75 MG Capsule PO SCH (08:24)
--- NOTE | 2018-07-29 13:13 | P.PNPSY ---
Subjective Remarks: Pt seen and discussed with staff. Chart reviewed. He was admitted for suicidal ideation and AH. Yesterday Abilify was increased to target AH and delusions. He c/o of fears that goblins were coming through his window last night. Today he has been more calm and cooperative with care. He reports that anxiety is improved with gabapentin. No medication side effects. He reports intermittent SI but denies plan. Mental Status Examination Appearance: Appropriate Consciousness: Alert Orientation: Person, Place (at least) Motor Activity: Normal gait, Other (No motoric abnormalities noted) Speech: Unremarkable Language: Adequate Fund of Knowledge: Adequate Attention and Concentration: Adequate Memory: Unremarkable Mood: Anxious Affect: Anxious Thought Process & Associations: Intact Thought Content: Hallucinations Hallucination Type: Auditory Delusion Type: None Suicidal Ideation: Yes Suicidal Plan: No Suicidal Intention: No (Contracts for safety on inpatient unit) Homicidal Ideation: No Homicidal Plan: No Homicidal Intention: No Insight: Fair Judgment: Impulsive Assessment and Plan - Assessment (1) Schizoaffective disorder, depressive type Code(s): F25.1 - Schizoaffective disorder, depressive type Status: Acute - Plan Plan: Continue current tx plan Justification for Continued Inpatient Stay: impairments in safety and reality testing Request Healthcare Surrogate/Guardian Advocate?: No
[2018-07-29] MEDS: Mirtazapine 15 MG Tablet PO SCH (21:30)
[2018-07-30] MEDS: Venlafaxine XR 75 MG Capsule PO SCH (09:35)
[2018-07-30] MEDS: Gabapentin 100 MG Capsule PO SCH ×3 (09:36→21:27)
--- NOTE | 2018-07-30 13:33 | P.PNPSY ---
Subjective Remarks: Chart reviewed and discussed with nursing staff. Patient in his bed napping. Patient states that when he was discharged he broke up with his girlfriend and he was thinking of overdosing on his trazodone. He states that he is not sleeping and has alot on his mind. He endorses that voices are less prominent and that the "zombies" have not been bothering him. He lives with his mother. He presents sad and depressed. Nursing staff share that he spends alot of time in his room. Review of Systems All other systems reviewed negative except as stated in HPI Mental Status Examination Appearance: Appropriate Consciousness: Alert Orientation: Person, Place (at least) Motor Activity: Normal gait, Other (No motoric abnormalities noted) Speech: Unremarkable Language: Adequate Fund of Knowledge: Adequate Attention and Concentration: Adequate Memory: Unremarkable Mood: Sad Affect: Flat, Blunt Thought Process & Associations: Intact Thought Content: Hallucinations Hallucination Type: Auditory Delusion Type: None Suicidal Ideation: No Suicidal Plan: No Suicidal Intention: No (Contracts for safety on inpatient unit) Homicidal Ideation: No Homicidal Plan: No Homicidal Intention: No Insight: Fair Judgment: Impulsive Assessment and Plan - Assessment (1) Schizo-affective schizophrenia Code(s): F25.0 - Schizoaffective disorder, bipolar type Status: Acute - Plan Plan: Continue current tx plan Justification for Continued Inpatient Stay: Moving patient to a less restrictive environment may result in his decompensation. Request Healthcare Surrogate/Guardian Advocate?: No
[2018-07-30] MEDS: Mirtazapine 15 MG Tablet PO SCH (21:27)
[2018-07-31] MEDS: Venlafaxine XR 75 MG Capsule PO SCH (08:54)
[2018-07-31] MEDS: Gabapentin 100 MG Capsule PO SCH ×3 (08:57→20:56)
--- NOTE | 2018-07-31 09:47 | P.PNPSY ---
Subjective Remarks: Patient seen and examined with nurse. Chart reviewed. Case discussed with nursing staff. On my examination today, the patient reports that his depression is unchanged. He continues to endorse intermittent suicidal ideation. He endorses visual hallucinations of cats and zombies banging on the window. He says that his hallucinations this morning were "the worst I have had so far." We do revisit the patient's diagnosis and history of response to treatment, and he notes that he has never been completely free of audiovisual hallucinations but has felt less anxious and distressed in the past. He denies side effects from medications. Agreeable to medication changes as outlined below. No physical complaints. He is receptive to residential placement, and I have instructed the counselor to pursue this option. Vital Signs Temp Pulse Resp BP Pulse Ox 07/31/18 04:00 97.5 F L 94 H 18 90/51 L 96 07/30/18 17:36 97.8 F 90 16 110/60 98 Intake and Output 07/30/18 07/31/18 07/31/18 22:59 06:59 14:59 Other: Weight 58.2 kg Labs reviewed. No new labs. Review of Systems All other systems reviewed negative except as stated in HPI Mental Status Examination Appearance: Appropriate Consciousness: Alert Orientation: Person, Place (at least) Motor Activity: Normal gait, Other (No abnormal motor movements noted) Speech: Unremarkable Language: Adequate Fund of Knowledge: Adequate Attention and Concentration: Adequate Memory: Unremarkable Mood: Sad, Anxious Affect: Blunt Thought Process & Associations: Intact Thought Content: Hallucinations Hallucination Type: Auditory, Visual Delusion Type: None Suicidal Ideation: Yes (Intermittent) Suicidal Plan: No Suicidal Intention: No (No reported urge to hurt self on inpatient unit.) Homicidal Ideation: No Homicidal Plan: No Homicidal Intention: No Insight: Fair Judgment: Impulsive Assessment and Plan - Assessment (1) Schizoaffective disorder, depressive type Code(s): F25.1 - Schizoaffective disorder, depressive type Status: Acute - Plan Plan: Titrate Abilify to 30 mg daily to target reported psychotic symptoms. Titrate gabapentin to 400 mg 3 times daily to target anxiety. Continue other psychotropics as ordered. Continue to monitor on the inpatient unit. Continue other medications and care as ordered. Justification for Continued Inpatient Stay: Medication changes. Risk for decompensation in less restrictive environment. Discharge Planning: Possible residential placement. Counselor working on this. Request Healthcare Surrogate/Guardian Advocate?: No
[2018-07-31] MEDS: Mirtazapine 15 MG Tablet PO SCH (20:54)
[2018-07-31] MEDS: Ibuprofen 600 MG Tablet PO PRN (20:54)
[2018-08-01] MEDS: Gabapentin 100 MG Capsule PO SCH ×3 (08:55→21:53)
[2018-08-01] MEDS: Venlafaxine XR 75 MG Capsule PO SCH (08:55)
--- NOTE | 2018-08-01 13:11 | P.PNPSY ---
Subjective Remarks: Patient seen and examined with nurse. Chart reviewed. Case discussed with nursing staff. Case discussed in treatment team where therapists note that the patient's presentation is somewhat dramatic and perhaps exaggerated. On my examination today, the patient complains of feeling "a little nervous" about upcoming transition to residential treatment, scheduled for tomorrow. His sleep is reportedly somewhat poor, and he asks if we can adjust his medications towards improving sleep. He denies any SI or HI. He does continue to complain of some visual hallucinations. Denies side effects from medications besides some mild drowsiness, but the patient feels that if he gets a better night sleep this drowsiness will not be an issue. No physical complaints. Patient remains agreeable to residential treatment. Vital Signs Temp Pulse Resp BP Pulse Ox 08/01/18 05:49 97.5 F L 90 18 123/64 99 07/31/18 17:25 98.6 F 100 H 16 140/63 97 Intake and Output 08/01/18 08/01/18 08/01/18 06:59 14:59 22:59 Intake Total 360 / 360 Balance 360 / 360 Intake: Oral 360 / 360 Labs reviewed. No new labs. Review of Systems All other systems reviewed negative except as stated in HPI Mental Status Examination Appearance: Appropriate Consciousness: Alert Orientation: Person, Place (at least) Motor Activity: Normal gait, Other (No motoric abnormalities noted) Speech: Unremarkable Language: Adequate Fund of Knowledge: Adequate Attention and Concentration: Adequate Memory: Unremarkable Mood: Anxious Affect: Blunt Thought Process & Associations: Intact Thought Content: Hallucinations Hallucination Type: Visual Delusion Type: None Suicidal Ideation: No Suicidal Plan: No Suicidal Intention: No Homicidal Ideation: No Homicidal Plan: No Homicidal Intention: No Insight: Fair Judgment: Impulsive Assessment and Plan - Assessment (1) Schizoaffective disorder, depressive type Code(s): F25.1 - Schizoaffective disorder, depressive type Status: Acute - Plan Plan: Titrate nighttime dose of Seroquel to 400 mg at bedtime. Continue other psychotropics as ordered. Continue to monitor on the inpatient unit. Continue other care as ordered. Justification for Continued Inpatient Stay: Medication changes. Risk for decompensation in less restrictive environment. Discharge Planning: Plan for transfer to residential treatment facility tomorrow, Tuesday. Request Healthcare Surrogate/Guardian Advocate?: No
--- NOTE | 2018-08-01 15:00 | P.TTN ---
- Patient Problems Problems: 1. Discharge planning 2. Medication compliance 3. Knowledge deficit 4. Lack of coping skills - Progress Toward Goals Provider Present: Dr. Jamel Pérez (ativan seeking) Provider Input: 07/28/18- Elisa- increasing Seroquel, patient contiues to [facility] report intense anxiety, may be attention seeking. 07/25/18; MD is titrating Seroquel while tapering abilify with goal of single antipsychotic medication for this pt. Pt is currently meeting inpt criteria. Nurse Input: 07/28/18- Yara- Patient is expressing desire for medication adjustment Psychiatric Counselors Present: Travon Lema Jr., [facility] (Faxed clinicals to [facility]), Roxanne Eubanks, [facility] Psychiatric Therapist Input: 07/28/18- Roxanne- Patient expresses helplessness and hopelessness yet is cooperative on unit and engaged with others. Patient should be able to dicharge when stable to parents home. 07/25/18: Cole to follow this pt for d/c planning options. Group Spec/RT/OT/BUENO Present: Irma Suh, GIN, MYLES Daly (Pt. attends groups regularly. Pt. says he is anxious but unsure if this an act.) Group Spec/RT/OT/BUENO Input: 07/28/18: Irma Patient does attend groups, appropriate, can become overwhelmed at times. 07/25: Pt does attend some groups , he is appropriate and participates. Additional Input: 07/25/18: Pt is currently meeting inpt status as he is not stabilized on his anti-psychotic. D/c planning options to be explored by Roxanne with other counselor assistance. - Documentation Teaching Recipient: Patient
[2018-08-01] MEDS: Mirtazapine 15 MG Tablet PO SCH (21:53)
[2018-08-02 05:46] VITALS: BP 105/60; PULSE 72; RESP 16; TEMP 98.5; O2SAT 98
[2018-08-02] MEDS: Gabapentin 100 MG Capsule PO SCH (08:35)
[2018-08-02] MEDS: Venlafaxine XR 75 MG Capsule PO SCH (08:35)
--- NOTE | 2018-08-02 09:50 | P.DSPSY ---
Psychiatry Discharge Summary Inpatient Psychiatric care?: Yes Advance Directives: No Reason for Unknown:: Due to Patient Condition Mental Health Advance Directive: No Health Care Proxy: No - Admission Admission Date: July 22, 2018 11:23 - Admission Diagnosis (1) Schizoaffective disorder, depressive type Code(s): F25.1 - Schizoaffective disorder, depressive type Brief History: Patient is a 18-year-old white male comes here under Patel act by the [place] [employer] dated 07/21/2018 at 8:37 AM that document reviewed essentially states Zachariah Asher took approximately 4 pills known as trazodone and then effort to harm himself when he was in the process of taking more pills when he was contacted by law enforcement Lakeshia stated that the voices in his head told him to harm himself Stephanie also stated he decided to take the pills because he believed it would stop the voices. Patient was seen screen in the ED urine toxicology negative blood alcohol level negative. Of interest patient was hospitalized here within the past month for similar episode. Patient seen in his room and J pod with nurse Rosa. He is alert and oriented calm cooperative young man short dark hair wearing dark room glasses. He stated that after his discharge from the hospital the voices became more insistent telling me he did not need to take his medication thus he stopped his Abilify and Seroquel. This led to the voices becoming more dominant and intrusive causing him to get more depressed leading to the overdose. A contributing factor may also be the fact that his girlfriend broke up with him somewhat precipitously. He states he has had difficulty with the relationship with girls all his life. He states he lives with his mother. He denies any physical or sexual abuse. Though there is mental illness that runs throughout the family of his father and his siblings. He does deny any alcohol or drug use. 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 That he graduated high school and has a few college courses in computer science. He states a history of ureteral stones and urinary stent placement. He states that the voices are quite severe even at the present time. At this time patient meets criteria for inpatient psychiatric hospitalization and stabilization though I feel he does have the capacity to sign voluntary. Thus I will lift the Patel act allow him to sign voluntary I did review his medications. I did finish the admission psychiatric template orders. Will increase his Abilify to 15 mg daily we will increase his bedtime Seroquel to 100 mg. We will discontinue the trazodone the BuSpar. Hopeless be fairly short stay we can return her to his family. Also recommend besides his follow- up through [facility] [place] act referral to our community base ongoing support groups Tobacco Use In Past 30 Days: No How Often Do You Have a Drink Containing Alcohol: Never Hospital Course: Patient was admitted to a locked, inpatient psychiatric unit. A general medical consultation was obtained. Appropriate precautions were in place throughout patient's hospital stay. Patient was seen and examined on the unit by psychiatry and also visited by counselor. Psychotropic medications were adjusted. Patient tolerated medication changes well without side effects. There was no evidence of any suicidality or homicidality on the inpatient unit. There was no evidence of self-care deficit. Working with the patient and patient's mother, counselor has arranged for residential treatment at [facility] , and the patient will be transferred there today. On the day of discharge: Patient seen and examined with nurse. Chart reviewed. Case discussed with nursing staff. No reported behavioral issues noted overnight. On my examination today, the patient feels ready to go to residential treatment program today. He denies any suicidal or homicidal ideation, intent or plan. Mood is "pretty good" and I can elicit no severe depressive or hypomanic/manic symptoms. He reports ongoing auditory hallucinations of "screaming" and "noises" but does not report any command auditory hallucinations to hurt self/others. He reports that his visual hallucinations are decreased at this morning, consisting only of a single "shadow figure." No delusional material elicited. Some cluster B personality traits noted. He denies side effects from medications. No physical complaints. Patient has maximized benefit from this inpatient psychiatric hospital stay. He does stand to benefit from further stabilization and treatment at residential treatment facility and will be transferred there today. Suicide and violence risk assessment both suggest lower imminent risk from mental illness, and the patient's level of function is adequate for level of outpatient care. With the benefit of observation on the inpatient unit, some degree of cluster B personality style is possible in the patient. Moreover, there is some degree of concern for possible benzodiazepine (specifically, Ativan) seeking behavior, which was noted throughout the hospital stay. There may be some degree of symptom exaggeration. Patient will be discharged to residential treatment facility today. He is also to follow up with primary care and with urology. I have counseled the patient regarding warning signs for need to return to the psychiatric emergency room as part of a general safety plan. - Discharge Discharge Date: 08/02/18 - Discharge Diagnosis (1) Schizoaffective disorder, depressive type Diagnosis: Principal Code(s): F25.1 - Schizoaffective disorder, depressive type Status: Acute Discharge Disposition: [facility] - Discharge Instructions Discharge Diet: Regular Diet Activities You Can Perform: Weight Bearing As Tolerat - Discharge Time <= 30 minutes Mental Status Examination Appearance: Appropriate Consciousness: Alert Orientation: x4 Motor Activity: Normal gait, Other (No hand tremor, no dystonia, no dyskinesia, no other motor abnormalities noted.) Speech: Unremarkable Language: Adequate Fund of Knowledge: Adequate Attention and Concentration: Adequate Memory: Unremarkable Mood: Appropriate Affect: Appropriate Thought Process & Associations: Intact, Logical, Goal directed, Linear Thought Content: Hallucinations Hallucination Type: Auditory, Visual Delusion Type: None Suicidal Ideation: No Suicidal Plan: No Suicidal Intention: No Homicidal Ideation: No Homicidal Plan: No Homicidal Intention: No Insight: Fair Judgment: Impulsive (Likely chronic condition associated with cluster B personality style) Discharge/Advance Care Plan - Results Vital Signs: Last Vital Signs Temp 98.5 F 08/02/18 05:45 Pulse 72 08/02/18 05:45 Resp 16 08/02/18 05:45 BP 105/60 08/02/18 05:45 Pulse Ox 98 08/02/18 05:45 Lab Results: Laboratory Results TSH 1.330 uIU/mL (0.358-3.740) 07/21/18 08:50 Urine Culture Comments Culture not ind 07/25/18 15:30 Summary of Procedures: None done Imaging: ITS Impressions Abdomen/Pelvis CT 07/28/18 00:00 CONCLUSION: 1. No acute findings on abdomen and pelvic CT. Tiny nonobstructing right renal calculus. Mild constipation. Pending Results: None - Medications Number of antipsychotic medications at discharge: 2 Appropriate use of more than 1 antipsychotic med: Justification other than those in allowable values 1-3, document here: (Prior to admission regimen consisted of 2 antipsychotics) - Discharge Care Plan Goals to Promote Your Health: * To prevent worsening of your condition and complications * To maintain your health at the optimal level Directions to Meet Your Goals: Take your medications as prescribed Follow your dietary instruction Follow activity as directed Keep your appointments as scheduled Take your immunizations and boosters as scheduled If your symptoms worsen call your PCP, if no PCP go to Urgent Care Center or Emergency Room For 02/05 questions related to your inpatient stay or results of tests pending at discharge, please contact Dr. Sami Pérez MD at Smoking is Dangerous to Your Health. Avoid second hand smoking
== END 2018-08-02 10:00 ==
LOC: NEPC 08:33 → H260 07-22 10:30 → NEPJ 07-22 11:08 → NEDA 07-22 11:23 → H260 07-22 11:25
PROVIDERS: ADMIT Psychiatry & Neurology Psychiatry; ATTEND Psychiatry & Neurology Psychiatry

== ENCOUNTER 2018-10-04 12:45 | Inpatient (IN) ==
[2018-10-04] MEDS ORDERED: Tetanus/Diphtheria Toxoid Adult Vaccine Inj 0.5 ML Vial IM ONE (13:25)
--- NOTE | 2018-10-04 13:42 | ED ---
HPI General Chief Complaint: Psychiatric Symptoms Stated Complaint: Psych Screen Time Seen by Provider: 10/04/18 13:15 Source: patient Mode of arrival: ambulatory Limitations: no limitations History of Present Illness HPI Narrative: Patient is a 18-year-old male here today for suicidal ideations. He states that he has become increasingly depressed and tried cutting himself on the right rib cage with a razor. He has suicidal thoughts with a plan of cutting his wrist he has previously overdosed on medication. He is unsure if his tetanus shot was up-to-date. He does take Effexor 150 mg p.o. daily and he does have a psychiatrist at [facility]. He states that today after cutting himself he called his day care home mother at [facility] who picked him up and brought him here for evaluation. At this time he is awake alert oriented he is cooperative. He does have a flat affect. He states that he lives at home with his mom he does not have a job and he is not in school. Pt placed under a Patel Act by Dr. Abraham. Medical history is positive for schizoaffective disorder, previous suicidal attempts, depression, acute psychosis. MD complaint: Reports suicidal ideation and feels depressed; Denies altered mental status Onset (ago): month(s) Duration: constant History of same: Yes Relieving factors: none Exacerbating factors: none Context: Denies recent alcohol abuse, recent drug abuse, not taking psychiatric medications and new medication(s) Associated psychiatric symptoms: Reports depression and suicidal ideation Associated symptoms: Denies confusion and headache If self harm: admits thoughts of self harm, has plan, has acted on plan and self -inflicted trauma Related Data Home Medications Medication Instructions Recorded Confirmed benztropine 1 mg PO BID 10/04/18 10/04/18 gabapentin 400 mg PO BID 10/04/18 10/04/18 lithium carbonate 300 mg PO BID 10/04/18 10/04/18 olanzapine [Zyprexa] 15 mg PO HS 10/04/18 10/04/18 quetiapine [Seroquel] 100 mg PO HS 10/04/18 10/04/18 venlafaxine [Effexor XR] 150 mg PO DAILY 10/04/18 10/04/18 Allergies Allergy/AdvReac Type Severity Reaction Status Date / Time lactose AdvReac Unknown Verified 07/25/18 14:34 Review of Systems ROS: all other systems reviewed are negative PMFSH History History Provided By: Patient Medical History Medical History Depression (Acute) Kidney stones (Acute) 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 SKIN: Focused skin assessment warm/dry. Multiple superficial lacerations to R ribcage. They are not bleeding, no sutures required. HEAD: Atraumatic. Normocephalic. EYES: Pupils equal and round. No scleral icterus. No injection or drainage. ENT: No nasal bleeding or discharge. Mucous membranes pink and moist. NECK: Trachea midline. No JVD. CARDIOVASCULAR: Regular rate and rhythm. No murmur appreciated. RESPIRATORY: No accessory muscle use. Clear to auscultation. Breath sounds equal bilaterally. GASTROINTESTINAL: Abdomen soft, non-tender, nondistended. Hepatic and splenic margins not palpable. MUSCULOSKELETAL: No obvious deformities. No clubbing. No cyanosis. No edema. NEUROLOGICAL: Awake and alert. No obvious cranial nerve deficits. Motor grossly within normal limits. Normal speech. PSYCHIATRIC: Flat mood and affect; insight and judgment normal. Course Initial Documented Vital Signs Temperature 98.3 F 10/04/18 13:02 Pulse Rate 88 10/04/18 13:02 Respiratory Rate 16 10/04/18 13:02 Blood Pressure 133/74 10/04/18 13:02 Pulse Oximetry 100 10/04/18 13:02 Last Documented Vital Signs Temperature 97.6 F 10/05/18 05:57 Pulse Rate 79 10/05/18 05:57 Respiratory Rate 18 10/05/18 05:57 Blood Pressure 95/63 L 10/05/18 05:57 Pulse Oximetry 99 10/05/18 05:57 Medical Decision Making MDM Narrative Medical decision making narrative: Medical decision making narrative: Patient here today for suicidal ideations he did cut himself on the right rib cage. At this time they do not need any cleaning or require any sutures as they are superficial and they are dried. Bleeding controlled. During the course of the patients emergency department visit, the patients history, examination, and differential diagnosis were reviewed with the patient. The patient was placed on a potline monitor with oximetry and frequent blood pressure monitoring. The patient was initially provided lab work, urinalysis, UDS. He was offered food and water. The patients laboratory studies were reviewed and remarkable for no acute abnormalities that require addressing at this time. Patient remains calm cooperative but did make him aware that he has been medically cleared for evaluation by psychiatry he verbalized understanding he is in agreement of plan. He remains under a Patel Act. Medical Screen Exam Complete: Yes Emergency Medical Condition: Yes Medical Screen Exam Complete: Yes Emergency Medical Condition: Yes Differential Diagnosis Differential Diagnosis: Depression, suicidal ideation, anxiety, bipolar, schizophrenia, psychosis. Lab Data Result diagrams: 10/04/18 13:30 10/05/18 05:49 Lab Results 10/04/18 10/04/18 10/04/18 Range/Units 13:30 13:30 13:30 WBC 9.9 (4.0-11.0) th/mm3 RBC 5.18 (4.50-5.90) mil/mm3 Hgb 16.6 (13.0-17.0) gm/dL Hct 48.5 (39.0-51.0) % MCV 93.8 (80.0-100.0) fL MCH 32.1 (27.0-34.0) pg MCHC 34.2 (32.0-36.0) % RDW 13.5 (11.6-17.2) % Plt Count 268 (150-450) th/mm3 MPV 8.3 (7.0-11.0) fL Neut % (Auto) 77.5 H (16.0-70.0) % Lymph % (Auto) 15.3 (9.0-44.0) % [place] % (Auto) 6.7 (0.0-8.0) % Eos % (Auto) 0.0 (0.0-4.0) % Baso % (Auto) 0.5 (0.0-2.0) % Neut # (Auto) 7.7 (1.8-7.7) th/mm3 Lymph # (Auto) 1.5 (1.0-4.8) th/mm3 [place] # (Auto) 0.7 (0.0-0.9) th/mm3 Eos # (Auto) 0.0 (0.0-0.4) th/mm3 Baso # (Auto) 0.0 (0.0-0.2) th/mm3 WBC Differential . Differential Comment Auto diff final Sodium 140 (136-145) meq/L Potassium 4.0 (3.5-5.1) meq/L Chloride 104 (98-107) meq/L Carbon Dioxide 29.3 (21.0-32.0) meq/L Anion Gap 7 (5-15) meq/L BUN 9 (7-18) mg/dL Creatinine 1.10 (0.60-1.30) mg/dL Estimated GFR 85 L (>89) mL/min Random Glucose 89 (74-106) mg/dL Calcium 9.2 (8.5-10.1) mg/dL Total Bilirubin 0.3 (0.2-1.0) mg/dL AST 15 (15-39) U/L ALT 21 (9-52) U/L Alkaline Phosphatase 99 (45-117) U/L Total Protein 8.7 H (6.4-8.2) g/dL Albumin 4.8 (3.4-5.0) g/dL Triglycerides (42-150) mg/dL Cholesterol (120-200) mg/dL LDL Cholesterol, Calc (0-99) mg/dL HDL Cholesterol (40.0-60.0) mg/dL Cholesterol/HDL Ratio Ratio TSH 1.270 (0.358-3.740) uIU/mL Urine Opiates Screen Neg (Neg) Ur Barbiturates Screen Neg (Neg) Ur Amphetamines Screen Neg (Neg) U Benzodiazepines Scrn Neg (Neg) Urine Cocaine Screen Neg (Neg) U Cannabinoids Screen Neg (Neg) Serum Alcohol Less than 3 (0-5) mg/dL 10/05/18 Range/Units 05:49 WBC (4.0-11.0) th/mm3 RBC (4.50-5.90) mil/mm3 Hgb (13.0-17.0) gm/dL Hct (39.0-51.0) % MCV (80.0-100.0) fL MCH (27.0-34.0) pg MCHC (32.0-36.0) % RDW (11.6-17.2) % Plt Count (150-450) th/mm3 MPV (7.0-11.0) fL Neut % (Auto) (16.0-70.0) % Lymph % (Auto) (9.0-44.0) % [place] % (Auto) (0.0-8.0) % Eos % (Auto) (0.0-4.0) % Baso % (Auto) (0.0-2.0) % Neut # (Auto) (1.8-7.7) th/mm3 Lymph # (Auto) (1.0-4.8) th/mm3 [place] # (Auto) (0.0-0.9) th/mm3 Eos # (Auto) (0.0-0.4) th/mm3 Baso # (Auto) (0.0-0.2) th/mm3 WBC Differential Differential Comment Sodium 138 (136-145) meq/L Potassium 4.2 (3.5-5.1) meq/L Chloride 103 (98-107) meq/L Carbon Dioxide 30.1 (21.0-32.0) meq/L Anion Gap 5 (5-15) meq/L BUN 11 (7-18) mg/dL Creatinine 1.06 (0.60-1.30) mg/dL Estimated GFR 89 (>89) mL/min Random Glucose 89 (74-106) mg/dL Calcium 9.6 (8.5-10.1) mg/dL Total Bilirubin (0.2-1.0) mg/dL AST (15-39) U/L ALT (9-52) U/L Alkaline Phosphatase (45-117) U/L Total Protein (6.4-8.2) g/dL Albumin (3.4-5.0) g/dL Triglycerides 113 (42-150) mg/dL Cholesterol 146 (120-200) mg/dL LDL Cholesterol, Calc 73 (0-99) mg/dL HDL Cholesterol 50.3 (40.0-60.0) mg/dL Cholesterol/HDL Ratio 2.90 Ratio TSH (0.358-3.740) uIU/mL Urine Opiates Screen (Neg) Ur Barbiturates Screen (Neg) Ur Amphetamines Screen (Neg) U Benzodiazepines Scrn (Neg) Urine Cocaine Screen (Neg) U Cannabinoids Screen (Neg) Serum Alcohol (0-5) mg/dL Discharge Plan Discharge Disposition Patient Disposition: Sign Out(ED Internal Use Only) Discharge Condition Condition: Stable Discharge Order Discharge Orders: ED Use Only Admit Order (Routine); Ordered 10/04/18 Ordered By: Lucia Mast Discharge Details Diagnosis: Schizo-affective schizophrenia, Suicidal ideation Physicians Team ED Provider: Jacques Abraham ED Midlevel Provider: Orly Chavarria Primary Care Provider: Primary Care Heidy Slater Attending Provider: Ethan Price Status ED Status: Left Department Discharge Information Discharge Date/Time: 10/04/18 20:00
[2018-10-04 13:53] LABS: Baso % (Auto) 0.5 % (0.0-2.0); Hematocrit 48.5 % (39.0-51.0); Hemoglobin 16.6 gm/dL (13.0-17.0); Lymph # (Auto) 1.5 th/mm3 (1.0-4.8); Lymph % (Auto) 15.3 % (9.0-44.0); Mean Corpuscular HGB Conc 34.2 % (32.0-36.0); Mean Corpuscular Hemoglobin 32.1 pg (27.0-34.0); Mean Corpuscular Volume 93.8 fL (80.0-100.0); Mean Platelet Volume 8.3 fL (7.0-11.0); Mono # (Auto) 0.7 th/mm3 (0.0-0.9); Mono % (Auto) 6.7 % (0.0-8.0); Neut # (Auto) 7.7 th/mm3 (1.8-7.7); Neut % (Auto) 77.5 % (16.0-70.0); Platelet Count 268 th/mm3 (150-450); Red Blood Count 5.18 mil/mm3 (4.50-5.90); Red Cell Distribution Width 13.5 % (11.6-17.2); White Blood Count 9.9 th/mm3 (4.0-11.0)
[2018-10-04 14:00] LABS: Amphetamine Screen,Urine Neg (Neg); Barbiturate Screen,Urine Neg (Neg); Cannabinoid Screen,Urine Neg (Neg); Cocaine Screen,Urine Neg (Neg)
[2018-10-04 14:05] LABS: Opiate Screen,Urine Neg (Neg)
[2018-10-04 14:15] LABS: Alanine Aminotransferase 21 U/L (9-52); Albumin 4.8 g/dL (3.4-5.0); Anion Gap 7 meq/L (5-15); Aspartate Aminotransferase 15 U/L (15-39); Blood Urea Nitrogen 9 mg/dL (7-18); Calcium 9.2 mg/dL (8.5-10.1); Carbon Dioxide 29.3 meq/L (21.0-32.0); Chloride 104 meq/L (98-107); Glomerular Filtration Rate 85 mL/min (>89); Glucose,Random 89 mg/dL (74-106); Sodium 140 meq/L (136-145)
[2018-10-04 14:25] LABS: Alkaline Phosphatase 99 U/L (45-117); Total Protein 8.7 g/dL (6.4-8.2)
[2018-10-04] MEDS ORDERED: Aluminum/Magnesium/Simethacone Susp 30 ML UDC PO PRN (16:56)
--- NOTE | 2018-10-04 17:00 | ED ---
HPI - Psych - General Source: patient Mode of arrival: ambulatory Limitations: no limitations - History of Present Illness Duration: constant Relieving factors: none Exacerbating factors: none - General Chief Complaint: Psychiatric Symptoms Stated Complaint: Psych Screen Time Seen by Provider: 10/04/18 13:15 - History of Present Illness HPI Narrative: This is a 18-year-old single, male who presents voluntarily to this facility after being brought in by his social work case manager for self harming. Patient has superficial cuts to the right side of his chest. He is previously known to this facility and department with his last inpatient admission being from . Reviewed electronic medical record, labs, discussed case with staff. Patient was evaluated in J1 10. He was found to be awake, alert, and oriented x4. His speech is clear, logical, organized, and of normal volume. He does have somewhat of a flat affect. At this time he endorses continued thoughts of self- harm and possible suicidal ideation. He denies homicidal ideation. He reports command auditory hallucinations which are intermittent. He also endorses visual hallucination stating that he "shadow figures". Patient reports that he has been feeling "really depressed". He denies any external stressors at this time. He reports that he follows up outpatient at [facility] with AUGUST Kamara. He denies smoking cigarettes, drinking alcohol, or utilizing drugs. He does have a previous suicidal attempt approximately 2 months ago by overdose. He states that he has some college but is currently unemployed. He states that he is living with his mother whom he has a good relationship with. He reports family history of psychiatric illness stating that both of his sisters have diagnoses of bipolar disorder. (Lucia Mast) - Related Data Home Medications Medication Instructions Recorded Confirmed benztropine 1 mg PO BID 10/04/18 10/04/18 gabapentin 400 mg PO BID 10/04/18 10/04/18 lithium carbonate 300 mg PO BID 10/04/18 10/04/18 olanzapine [Zyprexa] 15 mg PO HS 10/04/18 10/04/18 quetiapine [Seroquel] 100 mg PO HS 10/04/18 10/04/18 venlafaxine [Effexor XR] 150 mg PO DAILY 10/04/18 10/04/18 Allergies Allergy/AdvReac Type Severity Reaction Status Date / Time lactose AdvReac Unknown Verified 07/25/18 14:34 Review of Systems All other systems reviewed negative except as stated in HPI [facility] - History History Provided By: Patient - Medical History Medical History: Medical History (Last Reviewed 10/04/18 @ 17:05 by ALIZE Grayson) Depression Kidney stones Psychosis due to emotional stress - Surgical History Surgical History: Surgical History (Last Reviewed 10/04/18 @ 17:05 by ALIZE Grayson) S/P ureteral stent placement - Family History Family History: Family History (Last Reviewed 10/04/18 @ 17:05 by ALIZE Grayson) Other Bipolar disorder Depression - Tobacco History Second Hand Smoke Exposure: No Smoking Status: Never smoker - Alcohol History How Often Do You Have a Drink Containing Alcohol: Never - Substance Use History Substance History: No History of Abuse - Travel History Recent Travel in the [place] Within the Last 8 Weeks: No Recent Travel Out of the Country Within the Last 8 Weeks: No - Immunization History Tetanus Immunization: >5 Years Psychiatric History - Psychiatric History Psychiatric Treatment History: History of Psychiatric Treatment, History of Hospitalization in a Psychiatric Facility, History of Community Mental Health Treatment History of Inpatient Treatment: Yes Firearms in Home: Yes - Psychiatric History Extensive previous psychiatric history both inpatient and outpatient. (Lucia Mast) - Legal History Denies (Lucia Mast) - Family Psychiatric History Extensive familial history of bipolar disorder and depression. (Lucia Mats) Physical Exam - General Limitations: no limitations General appearance: anxious - Head Head exam: atraumatic - Neurological Exam Neurological exam: Present: alert, oriented X3 - Psychiatric Psychiatric exam: Present: flat affect, suicidal ideation - Skin Skin exam: Present: warm, dry Mental Status Examination Appearance: Appropriate, Well dressed/well groomed Consciousness: Alert Orientation: x4 Motor Activity: Normal gait Speech: Unremarkable Language: Adequate Fund of Knowledge: Adequate Attention and Concentration: Adequate Memory: Unremarkable Mood: Sad Affect: Sad, Other (Flat) Thought Process & Associations: Intact Thought Content: Hallucinations Hallucination Type: Auditory (Intermittent command) Delusion Type: None Suicidal Ideation: Yes Suicidal Plan: No Suicidal Intention: No Homicidal Ideation: No Homicidal Plan: No Homicidal Intention: No Insight: Fair Judgment: Impulsive Initial Documented Vital Signs Temperature 98.3 F 10/04/18 13:02 Pulse Rate 88 10/04/18 13:02 Respiratory Rate 16 10/04/18 13:02 Blood Pressure 133/74 10/04/18 13:02 Pulse Oximetry 100 10/04/18 13:02 Last Documented Vital Signs Temperature 98.3 F 10/04/18 13:02 Pulse Rate 68 10/04/18 15:00 Respiratory Rate 16 10/04/18 15:00 Blood Pressure 122/72 10/04/18 15:00 Pulse Oximetry 100 10/04/18 15:00 MDM - Psych - Diagnosis (1) Schizoaffective disorder, depressive type Code(s): F25.1 - Schizoaffective disorder, depressive type Status: Acute - Lab Data Result diagrams: 10/04/18 13:30 10/04/18 13:30 - MDM Narrative Medical decision making narrative: Given the patient's extensive psychiatric history, previous suicide attempts, and continued endorsement of thoughts of self-harm and suicidal ideation he meets admission criteria. I am admitting him to a locked inpatient psychiatric unit for further evaluation and treatment as deemed necessary. I will have patient sign consent forms to continue his current psychotropic regimen as he does have the capacity. He will be admitted voluntarily. (Lucia Mast) - Lab Data Lab Results 10/04/18 10/04/18 10/04/18 Range/Units 13:30 13:30 13:30 WBC 9.9 (4.0-11.0) th/mm3 RBC 5.18 (4.50-5.90) mil/mm3 Hgb 16.6 (13.0-17.0) gm/dL Hct 48.5 (39.0-51.0) % MCV 93.8 (80.0-100.0) fL MCH 32.1 (27.0-34.0) pg MCHC 34.2 (32.0-36.0) % RDW 13.5 (11.6-17.2) % Plt Count 268 (150-450) th/mm3 MPV 8.3 (7.0-11.0) fL Neut % (Auto) 77.5 H (16.0-70.0) % Lymph % (Auto) 15.3 (9.0-44.0) % [place] % (Auto) 6.7 (0.0-8.0) % Eos % (Auto) 0.0 (0.0-4.0) % Baso % (Auto) 0.5 (0.0-2.0) % Neut # (Auto) 7.7 (1.8-7.7) th/mm3 Lymph # (Auto) 1.5 (1.0-4.8) th/mm3 [place] # (Auto) 0.7 (0.0-0.9) th/mm3 Eos # (Auto) 0.0 (0.0-0.4) th/mm3 Baso # (Auto) 0.0 (0.0-0.2) th/mm3 WBC Differential . Differential Comment Auto diff final Sodium 140 (136-145) meq/L Potassium 4.0 (3.5-5.1) meq/L Chloride 104 (98-107) meq/L Carbon Dioxide 29.3 (21.0-32.0) meq/L Anion Gap 7 (5-15) meq/L BUN 9 (7-18) mg/dL Creatinine 1.10 (0.60-1.30) mg/dL Estimated GFR 85 L (>89) mL/min Random Glucose 89 (74-106) mg/dL Calcium 9.2 (8.5-10.1) mg/dL Total Bilirubin 0.3 (0.2-1.0) mg/dL AST 15 (15-39) U/L ALT 21 (9-52) U/L Alkaline Phosphatase 99 (45-117) U/L Total Protein 8.7 H (6.4-8.2) g/dL Albumin 4.8 (3.4-5.0) g/dL TSH 1.270 (0.358-3.740) uIU/mL Urine Opiates Screen Neg (Neg) Ur Barbiturates Screen Neg (Neg) Ur Amphetamines Screen Neg (Neg) U Benzodiazepines Scrn Neg (Neg) Urine Cocaine Screen Neg (Neg) U Cannabinoids Screen Neg (Neg) Serum Alcohol Less than 3 (0-5) mg/dL
[2018-10-04] MEDS: Gabapentin 400 MG Capsule PO SCH (21:07)
[2018-10-04] MEDS: OLANZapine 15 MG Tablet PO SCH (21:07)
[2018-10-04] MEDS: Melatonin 5 MG Tablet PO PRN (21:07)
[2018-10-04] MEDS: QUEtiapine 100 MG Tablet PO SCH (21:07)
[2018-10-05 06:58] LABS: Calcium 9.6 mg/dL (8.5-10.1); Carbon Dioxide 30.1 meq/L (21.0-32.0); Potassium 4.2 meq/L (3.5-5.1)
[2018-10-05 07:02] LABS: Chol/HDL Ratio 2.9 Ratio; HDL Cholesterol 50.3 mg/dL (40.0-60.0)
[2018-10-05] MEDS: Gabapentin 400 MG Capsule PO SCH ×2 (08:02→21:45)
[2018-10-05] MEDS ORDERED: Non-Formulary Drug (Venlafaxine [Effexor Xr] 150 MG) PO SCH (09:00)
[2018-10-05] MEDS ORDERED: Venlafaxine XR 75 MG Capsule PO SCH (09:45)
--- NOTE | 2018-10-05 14:30 | P.HPPSY ---
Provisional Diagnosis Admission Date: October 04, 2018 17:02 [place] I.: October 05, 2018 14:11 Bipolar disorder-mixed Competence Certification of Person's Competence To Provide Express and Informed Consent I have personally examined Zachariah Castellanos III, a person being served at [facility] on, October 05, 2018 1410. Express and informed consent means consent voluntarily given in writing, by a competent person, after sufficient explanation and disclosure of the subject matter involved to enable the person to make a knowing and willful decision without any element of force, fraud, deceit, duress, or other form of constraint or coercion. This person is 18 years of age or older, is not now known to be incompetent to consent to treatment with a guardian advocate, and does not have a health care surrogate or proxy currently making medical treatment decisions. I have found this person to be one of the following: [] Competent to provide express and informed consent, as defined above, for voluntary admission to this facility and is competent to provide express and informed consent for treatment. He/she has the consistent capacity to make well reasoned, willful, and knowing decisions concerning his or her medical or mental health treatment. The person fully and consistently understands the purpose of the admission for examination/placement and is fully capable of personally exercising all rights assured [place] [] Incompetent to provide express and informed consent to voluntary admission, and this is incompetent to provide express and informed consent to treatment. The person must be transferred to involuntary status and a petition for a guardian advocate filed with the Circuit Court. [] Refusing to provide express and informed consent to voluntary admission but is competent to provide express and informed consent for treatment. The person must be discharged or transferred to involuntary status. Form shall be completed within 24 hours of a person's arrival at the receiving facility and filed in the clinical record of each person: 1. Admitted on a voluntary basis 2. Permitted to provide express and informed consent to his/her own treatment 3. Allowed to transfer from involuntary to voluntary status 4. Prior to permitting a person to consent to his or her own treatment after having been previously found incompetent to consent to treatment. History of Present Illness Capacity: Has capacity Chief Complaint: Suicidal ideation and depressed mood History of Present Illness: October 05, 2018 14 10 PM HPI patient is a 18-year-old young man who is seen in transfer from [facility] after having contacted his Wayne He COPIER OPERATOR concerned that he was having suicidal ideation he was brought to the [facility] psych unit in the ED course further evaluation where it was determined that he was not safe to return home. Patient notes that he had thought of cutting himself although there is only a superficial scratch on his side. Patient has a history of 2 prior admissions for psychiatric evaluation. Most recent was 2 months ago by a psychiatrist here and later transferred to a longer term facility. Patient describes episodes of both depression with insomnia poor appetite lack of motivation and low energy as well as episodes of not sleeping feeling euphoric and unable to focus. Patient complains that his psychotropic medication has not been of benefit despite of several recent changes. Currently he is taking Effexor which she claims has not made a difference of 150 mg. Previously he had taken sertraline which made him feel more depressed. Patient has a long past history of Jasmin ideation nonlethal attempts. There is a family history of bipolar disorder into the patient's sisters. Patient lives with his mother and regularly spends time [place] with his stepfather. Patient describes regular arsenal of automatic weapons and handguns. Patient states that he would never use guns against another individual or himself and is frustrated by the fact that those have use firearms to harm others give a bad name to the mentally ill. Medication orders were discussed with the patient and he agrees with plan to discontinue the Effexor and start Lexapro 20 mg daily along with his Zyprexa and lithium. - Inpatient Certification I certify that the inpatient services were ordered in accordance with Medicare regulations governing the order. This includes certification that hospital inpatient services are reasonable and necessary and in the case of services not specified as inpatient-only under 42 CFR 419.22(n), that they are appropriately provided as inpatient services in accordance to with the 2-midnight benchmark under 43 CFR 412.3(e) I certify that inpatient psychiatric hospital services are medically necessary. Evaluation and treatment and/or diagnostic testing are expected to improve the patient's condition. The patient needs on a daily basis, active treatment furnished directly by or requiring the supervision of inpatient psychiatric facility personnel. 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 - Surgical History Surgical History: Surgical History (Last Reviewed 10/04/18 @ 17:05 by ALIZE Grayson) S/P ureteral stent placement - Family History Family History: Family History (Last Reviewed 10/04/18 @ 17:05 by ALIZE Grayson) Other Bipolar disorder Depression - Tobacco History Second Hand Smoke Exposure: No Smoking Status: Never smoker - Alcohol History How Often Do You Have a Drink Containing Alcohol: Never - Substance Use History Substance History: No History of Abuse - Travel History Recent Travel in the [place] Within the Last 8 Weeks: No Recent Travel Out of the Country Within the Last 8 Weeks: No - Immunization History Tetanus Immunization: <5 Years Hx Influenza Vaccine This Season: Yes Medications and Allergies Active Medications: Active Medications Al Hydrox/Mg Hydrox/Simethicone (Mag-Al Plus Susp Liq) 30 ml PO Q6H PRN PRN Reason: DYSPEPSIA Al Hydroxide/Mg Hydroxide (Milk Of Magnesia Liq) 30 ml PO Q12H PRN PRN Reason: Mild Constipation Benztropine Mesylate (Cogentin) 1 mg PO BID [facility] Last Admin: 10/05/18 08:02 Dose: 1 mg Escitalopram Oxalate (Lexapro) 20 mg PO DAILY [facility] Gabapentin (Neurontin) 400 mg PO BID [facility] Last Admin: 10/05/18 08:02 Dose: 400 mg Moro Carbonate (Moro Carbonate) 300 mg PO BID [facility] Last Admin: 10/05/18 08:02 Dose: 300 mg Melatonin (Melatonin) 5 mg PO HS PRN PRN Reason: INSOMNIA Last Admin: 10/04/18 21:07 Dose: 5 mg Olanzapine (Zyprexa) 15 mg PO HS [facility] Last Admin: 10/04/18 21:07 Dose: 15 mg Quetiapine Fumarate (Seroquel) 100 mg PO HS [facility] Last Admin: 10/04/18 21:07 Dose: 100 mg Allergies Allergy/AdvReac Type Severity Reaction Status Date / Time lactose AdvReac Unknown Verified 07/25/18 14:34 Home Medications Medication Instructions Recorded Confirmed Type benztropine 1 mg PO BID 10/04/18 10/04/18 History gabapentin 400 mg PO BID 10/04/18 10/04/18 History lithium carbonate 300 mg PO BID 10/04/18 10/04/18 History olanzapine [Zyprexa] 15 mg PO HS 10/04/18 10/04/18 History quetiapine [Seroquel] 100 mg PO HS 10/04/18 10/04/18 History venlafaxine [Effexor XR] 150 mg PO DAILY 10/04/18 10/04/18 History Results - Labs CBC & Chem 7: 10/04/18 13:30 10/05/18 05:49 Labs: Laboratory Results - last 24 hr 10/04/18 10/05/18 13:30 05:49 Sodium 140 138 Potassium 4.0 4.2 Chloride 104 103 Carbon Dioxide 29.3 30.1 Anion Gap 7 5 BUN 9 11 Creatinine 1.10 1.06 Estimated GFR 85 L 89 Random Glucose 89 89 Calcium 9.2 9.6 Total Bilirubin 0.3 AST 15 ALT 21 Alkaline Phosphatase 99 Total Protein 8.7 H Albumin 4.8 Triglycerides 113 Cholesterol 146 LDL Cholesterol, Calc 73 HDL Cholesterol 50.3 Cholesterol/HDL Ratio 2.90 TSH 1.270 Serum Alcohol Less than 3 Exam Vital signs: Vital Signs 10/04/18 15:00 10/04/18 18:51 10/04/18 19:45 Temperature 98.5 F Pulse Rate 68 78 79 Respiratory Rate 16 18 18 Blood Pressure 122/72 116/72 108/65 Pulse Oximetry 100 100 98 10/05/18 05:57 10/05/18 08:00 Temperature 97.6 F Pulse Rate 79 Respiratory Rate 18 Blood Pressure 95/63 L 102/58 L Pulse Oximetry 99 Intake & Output 10/04/18 10/05/18 10/05/18 18:59 06:59 18:59 Intake Total 240 / 240 Balance 240 / 240 Weight 58.967 kg 59.6 kg Intake: Oral 240 / 240 Other: Weight On Admission 59.6 kg Mental Status Examination Appearance: Appropriate, Well dressed/well groomed Consciousness: Alert Orientation: x4 Motor Activity: Normal gait Speech: Unremarkable Language: Adequate Fund of Knowledge: Adequate Attention and Concentration: Adequate Memory: Unremarkable Mood: Sad Affect: Sad, Other (Flat) Thought Process & Associations: Intact Thought Content: Hallucinations Hallucination Type: Auditory (Intermittent command) Delusion Type: None Suicidal Ideation: Yes Suicidal Plan: No Suicidal Intention: No Homicidal Ideation: No Homicidal Plan: No Homicidal Intention: No Insight: Fair Judgment: Impulsive Assessment and Plan - Plan Plan: Estimated LOS: [] days Patient has a rather long list of medications and improved. There is certainly our elements of a bipolar disorder which may be more directly be described as a schizoaffective disorder bipolar type. This would explain the long list of medications and medication failures. Justification for Continued Inpatient Stay: Patient is at risk for suicide without inpatient treatment at this time.
[2018-10-05 16:23] LABS: Hemoglobin A1c 4.6 % (4.3-6.0)
[2018-10-05 17:29] VITALS: RESP 17
[2018-10-05] MEDS: Melatonin 5 MG Tablet PO PRN (21:45)
[2018-10-05] MEDS: OLANZapine 15 MG Tablet PO SCH (21:45)
[2018-10-05] MEDS: QUEtiapine 100 MG Tablet PO SCH (21:46)
[2018-10-06 06:17] VITALS: BP 116/70; PULSE 83; TEMP 97.6; O2SAT 98
[2018-10-06] MEDS: Gabapentin 400 MG Capsule PO SCH (08:42)
--- NOTE | 2018-10-06 10:15 | P.DSPSY ---
Psychiatry Discharge Summary Inpatient Psychiatric care?: Yes Advance Directives: No Reason for Unknown:: Due to Patient Condition Mental Health Advance Directive: No Health Care Proxy: No - Admission Admission Date: October 04, 2018 17:02 Brief History: October 05, 2018 14 10 PM HPI patient is a 18-year-old young man who is seen in transfer from [facility] after having contacted his Wayne He PARTY PLANNER concerned that he was having suicidal ideation he was brought to the [facility] psych unit in the ED course further evaluation where it was determined that he was not safe to return home. Patient notes that he had thought of cutting himself although there is only a superficial scratch on his side. Patient has a history of 2 prior admissions for psychiatric evaluation. Most recent was 2 months ago by a psychiatrist here and later transferred to a longer term facility. Patient describes episodes of both depression with insomnia poor appetite lack of motivation and low energy as well as episodes of not sleeping feeling euphoric and unable to focus. Patient complains that his psychotropic medication has not been of benefit despite of several recent changes. Currently he is taking Effexor which she claims has not made a difference of 150 mg. Previously he had taken sertraline which made him feel more depressed. Patient has a long past history of Jasmin ideation nonlethal attempts. There is a family history of bipolar disorder into the patient's sisters. Patient lives with his mother and regularly spends time at a gun range with his stepfather. Patient describes regular arsenal of automatic weapons and handguns. Patient states that he would never use guns against another individual or himself and is frustrated by the fact that those have use firearms to harm others give a bad name to the mentally ill. Medication orders were discussed with the patient and he agrees with plan to discontinue the Effexor and start Lexapro 20 mg daily along with his Zyprexa and lithium. Tobacco Use In Past 30 Days: No How Often Do You Have a Drink Containing Alcohol: Never Hospital Course: October 06, 2018 Patient's course in the hospital was uneventful. He seemed to benefit from the discontinuance of the Effexor. Patient apparently has high levels of anxiety in the SNRI may have been over activating and contributing to the patient's anxiety his ALT repeated solution of suicidal thoughts or gestures. I discussed with patient the idea that since his medication did not seem to be helping it might be useful to continue only the Lexapro 20 mg a day and 6 weeks washout of the other medications after tapering those medications. Yesterday, the patient was still expressing suicidal ideations. Today he is not. Patient discharged to follow-up with Tarik He. for medication management. Additional, consideration should be given to the patient is having weekly supportive psychotherapy along with medication management. - Discharge Discharge Date: 10/06/18 Discharge Disposition: Home - Discharge Instructions Discharge Diet: Regular Diet Activities You Can Perform: Regular- No Restrictions - Discharge Time > 30 minutes Mental Status Examination Appearance: Appropriate, Well dressed/well groomed Consciousness: Alert Orientation: x4 Motor Activity: Normal gait Speech: Unremarkable Language: Adequate Fund of Knowledge: Adequate Attention and Concentration: Adequate Memory: Unremarkable Mood: Sad Affect: Sad, Other (Flat) Thought Process & Associations: Intact Thought Content: Hallucinations Hallucination Type: Auditory (Intermittent command) Delusion Type: None Suicidal Ideation: Yes Suicidal Plan: No Suicidal Intention: No Homicidal Ideation: No Homicidal Plan: No Homicidal Intention: No Insight: Fair Judgment: Impulsive Discharge/Advance Care Plan - Results Vital Signs: Last Vital Signs Temp 97.6 F 10/06/18 06:00 Pulse 83 10/06/18 06:00 Resp 17 10/06/18 06:00 BP 116/70 10/06/18 06:00 Pulse Ox 98 10/06/18 06:00 Lab Results: Abnormal Lab Results 10/05/18 05:49 Hemoglobin A1c 4.6 Laboratory Results Hemoglobin A1c 4.6 % (4.3-6.0) 10/05/18 05:49 Triglycerides 113 mg/dL (42-150) 10/05/18 05:49 Cholesterol 146 mg/dL (120-200) 10/05/18 05:49 LDL Cholesterol, Calc 73 mg/dL (0-99) 10/05/18 05:49 HDL Cholesterol 50.3 mg/dL (40.0-60.0) 10/05/18 05:49 TSH 1.270 uIU/mL (0.358-3.740) 10/04/18 13:30 Summary of Procedures: None Pending Results: None - Medications Number of antipsychotic medications at discharge: 1 - Discharge Care Plan Goals to Promote Your Health: * To prevent worsening of your condition and complications * To maintain your health at the optimal level Directions to Meet Your Goals: Take your medications as prescribed Follow your dietary instruction Follow activity as directed Keep your appointments as scheduled Take your immunizations and boosters as scheduled If your symptoms worsen call your PCP, if no PCP go to Urgent Care Center or Emergency Room For 02/05 questions related to your inpatient stay or results of tests pending at discharge, please contact Dr. Ethan Price MD at Smoking is Dangerous to Your Health. Avoid second hand smoking
== END 2018-10-06 13:15 | disposition home or self-care (01) | DRG 885 ==
LOC: NEPD 12:45 → NEDA 17:02 → H260 19:39
PROVIDERS: ADMIT Psychiatry & Neurology Child & Adolescent Psychiatry; ATTEND Psychiatry & Neurology Child & Adolescent Psychiatry